=== PATIENT | female | born 1980 | race Caucasian/White ===

== ENCOUNTER → 2016-07-13 | Outpatient (CLI) | payer OTHER ==
[~2016-07-13] MED LIST: CEPH500C PO; FERR1TAB23; OMEG10007 PO; OXYC-57 PO; PRENTAB26 PO; VITA10004
[2016-07-13 18:04] LABS: HEMATOCRIT 35.4 % (37-47)
[2016-07-13 19:55] LABS: GTGD 50 Grams
== END | disposition home or self-care (01) ==
LOC: C.LAB1850 15:23
PROVIDERS: ATTEND Obstetrics & Gynecology
DX: O09.513 Supervision of elderly primigravida, third trimester (principal)

== ENCOUNTER → 2016-08-24 | Outpatient (CLI) | payer OTHER ==
[2016-08-24 19:10] LABS: URINE APPEARANCE CLEAR (CLEAR); URINE BILIRUBIN NEG (NEG); URINE COLOR YELLOW; URINE EPITHELIAL CELL AUTO >30 /lpf (0-5); URINE NITRITE NEG (NEG); URINE PH 7.5 (4.5-7.5); URINE SPECIFIC GRAVITY 1.008 (1.000-1.030); UROBILINOGEN NEG (NEG)
[2016-08-24 19:38] LABS: MANUAL MICROSCOPIC REQUIRED? NO; REVIEW REQ? NO
== END | disposition home or self-care (01) ==
LOC: C.LABSPEC 17:55
PROVIDERS: ATTEND Obstetrics & Gynecology
DX: O09.513 Supervision of elderly primigravida, third trimester (principal); Z3A.00 Weeks of gestation of pregnancy not specified

== ENCOUNTER → 2016-08-30 | Outpatient (CLI) | payer OTHER | END | disposition home or self-care (01) | LOC: C.LABSPEC 17:48 | PROVIDERS: ATTEND Obstetrics & Gynecology | DX: O09.513 Supervision of elderly primigravida, third trimester (principal); Z3A.00 Weeks of gestation of pregnancy not specified ==

== ENCOUNTER 2016-09-12 08:57 | Outpatient (CLI) | payer OTHER ==
[~2016-09-12] VITALS: Ht 160 cm; Wt 62.6 kg
[2016-09-12] MEDS ORDERED: FERR1TAB23 (10:19)
[2016-09-12] MEDS ORDERED: PRENTAB26 PO (10:19)
[2016-09-12 10:21] VITALS: Ht 160 cm; Wt 62.6 kg
== END 2016-09-12 10:29 | disposition home or self-care (01) ==
LOC: C.OPB 08:57 → C.LD 08:57 → C.OPB 10:29
PROVIDERS: ATTEND Obstetrics & Gynecology
DX: O32.1XX0 Maternal care for breech presentation, not applicable or unspecified (principal); O09.513 Supervision of elderly primigravida, third trimester; Z3A.37 37 weeks gestation of pregnancy

== ENCOUNTER 2016-09-25 08:46 | Inpatient (IN) | payer OTHER ==
--- NOTE | 2016-09-15 17:32 | HISTORY & PHYSICAL EXAMINATION ---
DATE OF ADMISSION: 09/25/2016 ADMITTING DIAGNOSES: 1. Term . 2. Breech presentation. 3. Advanced maternal age. 4. Failed external cephalic version. ADMISSION HISTORY: The patient is a 36-year-old 1, para 0 with an EDC of 27 September at 39+ weeks gestational age who is admitted for primary section for breech presentation. The patient's breech presentation was diagnosed at 36 weeks. She had an attempted external cephalic version on labor and delivery, which was unsuccessful. Treatment options were discussed and she is admitted for the above-listed procedures. The patient has had an unremarkable course. She had a panorama screening done for advanced maternal age, which was low risk. Her blood type is A positive, antibody negative, rubella immune, hepatitis B negative. She had a negative maternal serum AFP, negative 1 hour Glucola x2 and a negative third trimester beta strep culture. PAST MEDICAL HISTORY: OBSTETRICAL: As above. GYNECOLOGICAL: None. MEDICAL: Migraine headaches. SURGICAL: [place] teeth extraction, tonsillectomy, and myringotomy tubes. ALLERGIES: No known drug allergies. SOCIAL HISTORY: No smoking. FAMILY HISTORY: Noncontributory. REVIEW OF SYSTEMS: As per HPI. ADMISSION PHYSICAL EXAMINATION: GENERAL: Today shows a pleasant gravid female in no acute distress. VITAL SIGNS: Blood pressure 110/70, weight of 136 pounds. HEENT EXAMINATION: Unremarkable. NECK: Supple. LUNGS: Clear. HEART: With a regular rhythm and rate. ABDOMEN: Gravid, breech. Positive heart tones, estimated weight of 7-1/2 pounds. PELVIC: Shows the cervix to be long, thick and closed. EXTREMITIES: Shows no deep calf tenderness. NEUROLOGIC: Grossly intact. IMPRESSION: A 36-year-old 1, para 0, 39+ weeks gestational age, primary section for breech presentation. PLAN: Risks, benefits and alternatives to the surgery have been discussed. While the benefits will be delivery of the , the risks are bleeding, infection, inadvertent injury to bowel or bladder, readmission or reoperation. The patient understands this. Permit has been signed and she wishes to proceed.
[~2016-09-25] VITALS: Ht 160 cm; Wt 60.8 kg
[2016-09-25] VITALS (12 sets, daily range): BP systolic 127–134; BP diastolic 75–87; PULSE 66–86; TEMP 36.7–36.9; O2SAT 97–100; Ht 160 cm; Wt 60.8 kg
[~2016-09-25 08:46] MED LIST changes: +CEFAZOLIN IV 2,000 MG in DEXTROSE 5% 50ML IV SCH; -CEPH500C PO; +CITRIC ACID/SODIUM CITRATE 15 ML UDC PO SCH; +LACTATED RINGER'S 1000ML 1,000 ML IV SCH; -OMEG10007 PO; -OXYC-57 PO; -VITA10004
[2016-09-25 09:56] LABS: HEMATOCRIT 38.9 % (37-47); MEAN CELL VOLUME 89.6 fL (80-100); MEAN CORPUSCULAR HEMOGLOBIN 30.6 pg (25-34); MEAN CORPUSCULAR HGB CONC 34.2 g/dl (32-36); MEAN PLATELET VOLUME 11.4 fL (7.4-10.4); PLATELET COUNT 198 K/uL (130-400); RED BLOOD COUNT 4.34 M/uL (4.2-5.4)
[2016-09-25] MEDS ORDERED: LACTATED RINGER'S 1000ML 1,000 ML IV SCH (10:15)
[2016-09-25] MEDS ORDERED: OMEG10007 PO (10:37)
[2016-09-25] MEDS ORDERED: VITA10004 (10:37)
--- NOTE | 2016-09-25 10:38 | History & Physical Bridge Note ---
H&P Re-Evaluation Bridge Note: I have examined the patient, reviewed the History & Physical and in the interval since the performance of the History & Physical I have noted the following changes of clinical significance: No changes noted
[2016-09-25] MEDS ORDERED: MoRPHine SULFATE PF 1 MG/ML 10 ML AMP/VIAL ONE (11:24)
[2016-09-25] MEDS ORDERED: OXYTOCIN INJ 10 UNITS/ML VIAL ONE ×2 (11:43→12:03)
[2016-09-25] MEDS ORDERED: NALOXONE HCL INJ 0.08 MG in SYRINGE 1.8 ML IV PRN (12:06)
[2016-09-25] MEDS ORDERED: NALOXONE HCL INJ 1 MG in SODIUM CHLORIDE 0.9% 1000ML 1,000 ML IV PRN (12:06)
[2016-09-25] MEDS ORDERED: LACTATED RINGER'S 1000ML 500 ML IV PRN (12:06)
[2016-09-25] MEDS ORDERED: SODIUM CHLORIDE 0.9% 1000ML 1,000 ML IV PRN (12:06)
[2016-09-25] MEDS ORDERED: ATROPINE SULFATE 0.1 MG/ML 5ML SYR IV PRN (12:15)
[2016-09-25] MEDS ORDERED: MEPERIDINE HCL 25 MG/ML CARP IV PRN ×2 (12:15)
[2016-09-25] MEDS ORDERED: SUPERCREAM 0.870 % 15GM JAR EXT PRN (12:15)
[2016-09-25] MEDS ORDERED: NALBUPHINE HCL INJ 10 MG/ML AMP IV PRN (12:15)
[2016-09-25] MEDS ORDERED: DiphenhydrAMINE HCL 50 MG/ML VIAL IV PRN ×2 (12:15)
[2016-09-25] MEDS ORDERED: FENTANYL CITRATE INJ 50 MCG/1 ML 2 ML VIAL IV PRN (12:15)
[2016-09-25] MEDS ORDERED: NALOXONE HCL 0.4 MG/1 ML VIAL/CARP IV PRN (12:15)
[2016-09-25] MEDS ORDERED: ONDANSETRON INJ 2 MG/ML 2 ML VIAL IV PRN ×2 (12:15)
[2016-09-25] MEDS ORDERED: MoRPHine SULFATE PF 1 MG/ML 10 ML AMP/VIAL EPI PRN (12:15)
[2016-09-25] MEDS ORDERED: EpHEDrine SULFATE INJ 50 MG/ML AMP IV PRN ×2 (12:15)
[2016-09-25] MEDS ORDERED: BENZOCAINE 20% AER SPR 82.5 GM CAN EXT PRN (12:15)
[2016-09-25] MEDS ORDERED: NO NARCOTICS OR SEDATIVES SCH (12:15)
[2016-09-25] MEDS ORDERED: LABETALOL HCL IV 5 MG/ML 20ML IV PRN (12:15)
[2016-09-25] MEDS ORDERED: LANOLIN OINT EXT PRN ×2 (12:15)
[2016-09-25] MEDS ORDERED: MoRPHine SULFATE 2 MG/ML CARP IV PRN (12:15)
[2016-09-25] MEDS ORDERED: HYDROCORTISONE ACETATE 25 MG SUPP PR PRN (12:15)
[2016-09-25] MEDS ORDERED: HYDROmorphone INJ 1 MG/ML SYR IV PRN (12:15)
--- NOTE | 2016-09-25 12:21 | [facility] Post Operative Brief Note ---
Immediate Operative Summary Operative Date Sep 25, 2016. Pre-Operative Diagnosis 1) Term . 2) breech presentation. Post-Operative Diagnosis Same as above. Procedure(s) Performed Primary caesarean section for breech presentation. Delivery of live female child at [address]. Surgeon Dr[address] Bernard Account Services Associate Surgeon(s) Dr. Kelsey Estimated Blood Loss 800cc Findings viable female , Apgars 8/9; weight 5 lbs 14 ozs, gasses pending, nml appearing tubes/ovaries bilaterally Specimens A: Placenta hold B: Cord blood C: Cord gasses venous only, D: Cord blood donation kit Drains Cabrera to gravity Anesthesia Spinal Complication(s) None Disposition L&D
--- NOTE | 2016-09-25 12:30 | Medical Student: [facility] ---
Immediate Operative Summary Operative Date Sep 25, 2016. Pre-Operative Diagnosis Term for breech presentation Post-Operative Diagnosis See above Procedure(s) Performed Primary section for breech presentation. Delivery of a live female infant at 1153. Surgeon Danilo Bernard MD Machine Hamper Maker Surgeon(s) Ty Kelsey MD Estimated Blood Loss 800cc Findings Live female . Apgars 8/9. Weight 5 lbs 14 oz. Normal appearing Fallopian tubes and ovaries bilaterally. Fluids (cc crystalloids) 1200cc Specimens Placenta Cord gasses Drains Cabrera to gravity Anesthesia Spinal Complication(s) None Disposition L&D
[2016-09-25] MEDS: KETOROLAC TROMETHAMINE 30 MG/ML VIAL IV. PRN ×2 (12:47→18:18)
[2016-09-25] MEDS: OXYTOCIN INJ 20 UNITS in LACTATED RINGER'S 1000ML 1,000 ML IV SCH ×2 (12:51→21:03)
[2016-09-25] MEDS: SIMETHICONE 80 MG CHEW PO SCH ×3 (13:00→20:54)
--- NOTE | 2016-09-25 14:28 | OPERATIVE REPORT ---
DATE OF OPERATION: 09/25/2016 PREOPERATIVE DIAGNOSES: 1. Term . 2. Breech presentation. POSTOPERATIVE DIAGNOSES: Same. PROCEDURE PERFORMED: Primary low cervical transverse section. SURGEON: Dr. Bernard. DEPOSIT REFUND CLERK: Dr. Ty Kelsey. ANESTHESIA: Spinal. FINDINGS: A viable female with Apgars of 8 and 9, weight of 5 pounds 14 ounces. Arterial and venous cord gases are pending. Normal appearing tubes and ovaries bilaterally. PROCEDURE IN DETAIL: The patient was taken to the operating room and after spinal anesthesia was placed in supine position and draped and prepped in the usual fashion. Pfannenstiel type incision was made. Underlying subcutaneous tissue was dissected down to the ventral abdominal fascia, which was nicked and opened in a horizontal manner. Preperitoneal fascia was dissected away until the peritoneal cavity was entered and opened in a vertical manner. Bladder blade was placed. Peritoneum overlying the uterus was elevated, opened in a semi-lunar fashion, the inferior margin of which was taken down, creating the bladder flap. Uterus was entered sharply and extended in a semilunar fashion manually. Baby was delivered from an apparent complete breech presentation. Cord was clamped and cut and the baby was passed off to pediatrics who was in attendance for the delivery. Cord gases, cord blood samples obtained. Attempt at volunteer cord blood donation, but unsuccessful volume collected. Placenta was delivered spontaneously and the uterus was exteriorized. Uterine cavity was wiped clean of any residual blood tissue and/or clot. The uterine incision was then closed in 2 layers of 4-0 Vicryl, the first a running locking stitch, the second an imbricating stitch. Hemostasis was achieved and the uterus was returned to the pelvic cavity. The paracolic gutters were cleared bilaterally of any blood tissue and/or clot. The sponge and needle count was correct. The rectus muscle was then plicated in the midline with a running 2-0 Vicryl suture. The fascia was closed laterally with a running 0 Vicryl suture. Subcutaneous tissue was irrigated with warm saline and the skin incision was closed with a 4-0 Monocryl subcuticular stitch. Sterile dressing was applied. The patient was taken to the recovery room in satisfactory condition. I attest to the content of the Intraoperative Record and any orders documented therein. Any exception s are noted below.
--- NOTE | 2016-09-25 16:17 | Anesthesiology Progress Note ---
Anesthesia Post Op Note Date & Time Sep 25, 2016 at 16:17 Vital Signs Pain Intensity: 4.0 Vital Signs Past 12 Hours Date Time Temp Pulse Resp B/P (MAP) Pulse Ox O2 Delivery O2 Flow Rate FiO2 09/25/16 15:00 36.7 66 16 127/75 (92) 99 Room Air 09/25/16 15:00 36.7 66 16 127/75 (92) 99 Room Air 09/25/16 15:00 16 99 Notes Mental Status: alert / awake / arousable, participated in evaluation Pt Amnestic to Procedure: Yes Nausea / Vomiting: adequately controlled Pain: adequately controlled Airway Patency, RR, SpO2: stable & adequate BP & HR: stable & adequate Hydration State: stable & adequate Neuraxial Anesthesia: was administered, sensory block is resolving Anesthetic Complications: no major complications apparent
--- NOTE | 2016-09-25 16:17 | Anesthesiology Progress Note ---
Anesthesia Post Op Note Date & Time Sep 25, 2016 at 16:17 Vital Signs Pain Intensity: 4.0 Vital Signs Past 12 Hours Date Time Temp Pulse Resp B/P (MAP) Pulse Ox O2 Delivery O2 Flow Rate FiO2 09/25/16 15:00 36.7 66 16 127/75 (92) 99 Room Air 09/25/16 15:00 36.7 66 16 127/75 (92) 99 Room Air 09/25/16 15:00 16 99 Notes Mental Status: alert / awake / arousable, participated in evaluation Pt Amnestic to Procedure: Yes Nausea / Vomiting: adequately controlled Pain: adequately controlled Airway Patency, RR, SpO2: stable & adequate BP & HR: stable & adequate Hydration State: stable & adequate Neuraxial Anesthesia: was administered, sensory block resolved Anesthetic Complications: no major complications apparent
[2016-09-25] MEDS: MAGNESIUM HYDROXIDE SUSP 30 ML UDC PO SCH (22:30)
[2016-09-26] VITALS (10 sets, daily range): BP systolic 111–138; BP diastolic 68–81; PULSE 76–95; TEMP 36.7–37.2; O2SAT 95–100
[2016-09-26] MEDS ORDERED: DC INTRASPINAL MORPHINE SCH (05:30)
[2016-09-26] MEDS ORDERED: KETOROLAC TROMETHAMINE 30 MG/ML VIAL IV. PRN (05:30)
[2016-09-26] MEDS ORDERED: OXYCODONE/ACETAMINOPHEN 5-325 TAB PO PRN ×2 (05:30)
[2016-09-26] MEDS ORDERED: DiphenhydrAMINE HCL 50 MG/ML VIAL IV PRN (05:30)
[2016-09-26] MEDS ORDERED: ONDANSETRON INJ 2 MG/ML 2 ML VIAL IV PRN (05:30)
[2016-09-26] MEDS ORDERED: MEPERIDINE HCL 50 MG/ML CARP IV PRN ×2 (05:30)
[2016-09-26 06:26] LABS: BASO % 0.2 %; BASO ABS # 0.03 K/uL (0-0.2); COMPLETE YES; EOS % 0.8 %; HEMATOCRIT 30.1 % (37-47); IG% 0.4 %; LYMPH % 11.1 %; LYMPH ABS # 1.53 K/uL (1.2-3.4); MEAN CELL VOLUME 89.9 fL (80-100); MEAN CORPUSCULAR HEMOGLOBIN 30.7 pg (25-34); MEAN CORPUSCULAR HGB CONC 34.2 g/dl (32-36); MEAN PLATELET VOLUME 10.8 fL (7.4-10.4); MONO % 5.2 %; NEUT % 82.3 %; PLATELET COUNT 162 K/uL (130-400); RED BLOOD COUNT 3.35 M/uL (4.2-5.4); WHITE BLOOD COUNT 13.84 K/uL (4.8-10.8)
--- NOTE | 2016-09-26 06:58 | Medical Student: [facility] ---
Med Student DIRECTOR OF STRATEGIC ALLIANCES Progress Nt Date of Service Sep 26, 2016. Subjective conversation w/ patient Ambulation: limited ambulation (has sat up and dangled legs off of bed but not yet ambulated) Voiding: no voiding problems (montero removed this morning ) Passing Gas: Yes Diet Tolerance: Clear Liquids Feeding Type: Breast Feeding Pain: 3-4/10 without any pain meds. Notes: Patient is doing well. Reports some itching but otherwise has no acute complaints. SCDs are in place. Received no pain meds overnight. Reports headache but attributes it to lack of sleep. Concerned baby is not feeding enough and is willing to supplement with bottle feeding. Pt denies fevers, calf pain, chest pain, shortness of breath, and abdominal pain. Plan of care was described to the patient and all questions were answered. Review of Systems Constitutional: No fever, No chills, No sweats Respiratory: No shortness of breath Cardiac: No chest pain Abdomen: + pain (abdomen was slightly red, with some tenderness on palpation), No nausea, No vomiting Objective Vital Signs Date Time Temp Pulse Resp B/P (MAP) Pulse Ox O2 Delivery O2 Flow Rate FiO2 09/26/16 04:10 36.9 76 20 124/77 (93) 100 Room Air 09/26/16 04:00 20 100 09/26/16 03:00 20 97 09/26/16 02:00 18 100 09/26/16 01:00 20 97 09/26/16 00:00 20 97 09/25/16 23:30 97 Room Air 09/25/16 23:30 36.8 86 20 134/82 (99) Room Air 09/25/16 23:00 20 99 09/25/16 22:00 18 97 09/25/16 21:00 18 97 09/25/16 20:00 18 98 09/25/16 19:50 36.9 76 18 133/87 (102) Room Air 09/25/16 19:00 18 100 09/25/16 18:00 16 100 09/25/16 17:00 18 100 09/25/16 16:00 18 100 09/25/16 15:30 99 Room Air 09/25/16 15:00 36.7 66 16 127/75 (92) 99 Room Air 09/25/16 15:00 36.7 66 16 127/75 (92) 99 Room Air 09/25/16 15:00 16 99 Physical Exam General Appearance: WELL-APPEARING, WD/WN, NO APPARENT DISTRESS Fundus: Firm, Non-Tender, Relation to Umbilicus (1 cm below umbilicus) Incision Description: Clean, Dry & Intact Laboratory Results Last 24 Hours Test 09/25/16 09:29 09/26/16 06:11 White Blood Count 11.50 K/uL 13.84 K/uL Red Blood Count 4.34 M/uL 3.35 M/uL Hemoglobin 13.3 g/dL 10.3 g/dL Hematocrit 38.9 % 30.1 % Mean Corpuscular Volume 89.6 fL 89.9 fL Mean Corpuscular Hemoglobin 30.6 pg 30.7 pg Mean Corpuscular Hemoglobin Concent 34.2 g/dl 34.2 g/dl RDW Standard Deviation 42.8 fL 43.2 fL RDW Coefficient of Variation 13.0 % 13.2 % Platelet Count 198 K/uL 162 K/uL Mean Platelet Volume 11.4 fL 10.8 fL Neutrophils (%) (Auto) 82.3 % Lymphocytes (%) (Auto) 11.1 % Monocytes (%) (Auto) 5.2 % Eosinophils (%) (Auto) 0.8 % Basophils (%) (Auto) 0.2 % Neutrophils # (Auto) 11.39 K/uL Lymphocytes # (Auto) 1.53 K/uL Monocytes # (Auto) 0.72 K/uL Eosinophils # (Auto) 0.11 K/uL Basophils # (Auto) 0.03 K/uL Immature Granulocyte % (Auto) 0.4 % Immature Granulocyte # (Auto) 0.06 K/uL Assessment and Plan Post-Op Day Number: 1 Continue Routine Care: GBS negative, A+ blood type Continue routine care Encourage ambulation Continue SCD use Vital signs reviewed and stable; continue with regular vital sign checks Hb 13.3 --> 10.3 Monitor wound complained of leg itching - advised to let nurses know if she would like diphenhydramine Control pain with PO meds as needed
--- NOTE | 2016-09-26 07:01 | Progress Note ---
Subjective Sep 26, 2016. Subjective conversation w/ patient Ambulation: limited ambulation Voiding: no voiding problems (montero cathetor removed) Passing Gas: Yes Diet Tolerance: Clear Liquids Lochia: Moderate Feeding Type: Breast Feeding (pt is worried if baby is getting enough breastmild, assured pt that the pediatritians are monitoring weight, hydration status and will provide care for Danny (girl)) Comment: The patient was seen and examined at bedside. Pt is worried that her child is getting enough breast mild, met with analytical consultant Molly today and excited to speak with her today as well. Got 30mg of Toradol at 6pm yesterday. Pt reports mild headache, well controlled abdominal pain, she didn't get the best sleep she could. Pt reports anterior left ankle pain - non tender to palpation , FROM, benign on exam. Also has mild leg itching for which she hasn 't told the nurse about. Patient is resting comfortably in bed. Montero was recently removed. Plan of care was described to the patient and all questions were answered. Review of Systems Constitutional: No fever, No chills, No weakness Respiratory: No cough, No sputum, No wheezing, No shortness of breath, No dyspnea on exertion Cardiac: No chest pain, No edema, No palpitations Breast: No breast pain Abdomen: No pain, No nausea, No vomiting, No diarrhea, No constipation Female : + vaginal discharge, No dysuria Objective Vital Signs Date Time Temp Pulse Resp B/P (MAP) Pulse Ox O2 Delivery O2 Flow Rate FiO2 09/26/16 04:10 36.9 76 20 124/77 (93) 100 Room Air 09/26/16 04:00 20 100 09/26/16 03:00 20 97 09/26/16 02:00 18 100 09/26/16 01:00 20 97 09/26/16 00:00 20 97 09/25/16 23:30 97 Room Air 09/25/16 23:30 36.8 86 20 134/82 (99) Room Air 09/25/16 23:00 20 99 09/25/16 22:00 18 97 09/25/16 21:00 18 97 09/25/16 20:00 18 98 09/25/16 19:50 36.9 76 18 133/87 (102) Room Air 09/25/16 19:00 18 100 09/25/16 18:00 16 100 09/25/16 17:00 18 100 09/25/16 16:00 18 100 09/25/16 15:30 99 Room Air 09/25/16 15:00 36.7 66 16 127/75 (92) 99 Room Air 09/25/16 15:00 36.7 66 16 127/75 (92) 99 Room Air 09/25/16 15:00 16 99 Physical Exam General Appearance: WELL-APPEARING, WD/WN, NO APPARENT DISTRESS Respiratory/Chest: chest non-tender, lungs clear, normal breath sounds, no respiratory distress, no accessory muscle use Cardiovascular: regular rate, rhythm, no edema, no gallop, no JVD, no murmur Abdomen: normal bowel sounds, non tender, soft, no organomegaly, no pulsatile mass, + pertinent finding (skin over anterior abdomen is slightly erythematous around the area where the iodine was applied ) Fundus: Firm, Non-Tender, Relation to Umbilicus (1) Incision Description: Clean, Dry & Intact Extremities: normal range of motion, non-tender, normal inspection, no pedal edema, no calf tenderness Laboratory Results Last 24 Hours Test 09/25/16 09:29 09/26/16 06:11 White Blood Count 11.50 K/uL 13.84 K/uL Red Blood Count 4.34 M/uL 3.35 M/uL Hemoglobin 13.3 g/dL 10.3 g/dL Hematocrit 38.9 % 30.1 % Mean Corpuscular Volume 89.6 fL 89.9 fL Mean Corpuscular Hemoglobin 30.6 pg 30.7 pg Mean Corpuscular Hemoglobin Concent 34.2 g/dl 34.2 g/dl RDW Standard Deviation 42.8 fL 43.2 fL RDW Coefficient of Variation 13.0 % 13.2 % Platelet Count 198 K/uL 162 K/uL Mean Platelet Volume 11.4 fL 10.8 fL Neutrophils (%) (Auto) 82.3 % Lymphocytes (%) (Auto) 11.1 % Monocytes (%) (Auto) 5.2 % Eosinophils (%) (Auto) 0.8 % Basophils (%) (Auto) 0.2 % Neutrophils # (Auto) 11.39 K/uL Lymphocytes # (Auto) 1.53 K/uL Monocytes # (Auto) 0.72 K/uL Eosinophils # (Auto) 0.11 K/uL Basophils # (Auto) 0.03 K/uL Immature Granulocyte % (Auto) 0.4 % Immature Granulocyte # (Auto) 0.06 K/uL Assessment and Plan Post-Op (1) Day#: 1 Continue Routine Care: 36F s/p Low Transverse at 39W+5D for breech presentation. Doing well. GBS negative, A+ blood type vital signs reviewed and stable will continue regular vital sign checks leg itching - advised to tell the nurse about itching if she wants medication about it left ankle pain - benign exam (non tender, FROM, distal anterior ankle), very low probability of DVT hemoglobin 13.3-->10.3, will repeat H&H tomorrow AM progress diet from clear liquids monitor wound and lochia ambulate and SCDs for DVT prophylaxis control pain w PO medication continue routine post op care Resident Physician Supervision Note: I interviewed and examined the patient. Discussed with Dr. Kelsey and agree with findings and plan as documented in the note. Any exceptions or clarifications are listed here: [None] Documented By: Cielo Armenta Resident Involvement: Resident Care Provided Care Provided: OB Delivery
[2016-09-26] MEDS: PRENATAL VITAMIN TAB PO SCH (08:29)
[2016-09-26] MEDS: SIMETHICONE 80 MG CHEW PO SCH ×4 (08:29→19:48)
[2016-09-26] MEDS: IBUPROFEN 600 MG TAB PO PRN (19:48)
[2016-09-26] MEDS: SENNA 8.6 MG TAB PO SCH (21:10)
[2016-09-26] MEDS: MAGNESIUM HYDROXIDE SUSP 30 ML UDC PO SCH (21:10)
[2016-09-27 07:41] LABS: HEMATOCRIT 30.2 % (37-47)
--- NOTE | 2016-09-27 07:57 | Progress Note ---
Subjective Sep 27, 2016. Subjective conversation w/ patient, physical exam, lab review Ambulation: ambulating normally Voiding: no voiding problems Passing Gas: Yes (HAD BM) Diet Tolerance: Regular Diet Lochia: Small Feeding Type: Breast Feeding Pain: CONTROLLED WITH ORAL PAIN MEDS Comment: PATIENT WAS UNABLE TO VOID YESTERDAY AND HAD JONES REPLACED. Objective Vital Signs Date Time Temp Pulse Resp B/P (MAP) Pulse Ox O2 Delivery O2 Flow Rate FiO2 09/26/16 23:25 Room Air 09/26/16 23:25 36.7 78 18 121/77 (92) Room Air 09/26/16 15:10 37.2 95 20 138/68 (91) 99 Room Air 09/26/16 15:10 Room Air 09/26/16 12:00 36.8 84 18 111/68 (82) 98 Room Air 09/26/16 08:40 Room Air 09/26/16 08:15 37.0 88 20 129/81 (97) 95 Room Air Physical Exam General Appearance: WELL-APPEARING, WD/WN, NO APPARENT DISTRESS Respiratory/Chest: lungs clear, normal breath sounds Cardiovascular: regular rate, rhythm Abdomen: normal bowel sounds, non tender, soft Fundus: Firm, Non-Tender, Relation to Umbilicus (ATU) Incision Description: Clean, Dry & Intact (SIGNIFICANT BRUISING OF THE INCISION BOTH ABOVE AND BELOW. ALSO BRUISING NOTED ONTO THE LABIA MAJORA. FIRM BUT NOT HOT.) Extremities: non-tender, normal inspection, no pedal edema Laboratory Results Last 24 Hours Test 09/27/16 07:03 Hemoglobin 9.9 g/dL Hematocrit 30.2 % Assessment and Plan Post-Op (1) Day#: 2 Continue Routine Care: ROUTINE CARE. WILL REMOVE JONES AND ATTEMPT TO VOID AGAIN. IF STILL UNSUCCESSFUL, WILL D/C HOME WITH CATH. HER INCISION DOES NOT LOOK SIGNIFICANTLY WORSE THAN YESTERDAY ALTHOUGH THE BRUISING ON THE LABIA IS NEW. WILL CONTINUE TO MONITOR.
[2016-09-27 08:00] VITALS: BP 119/70; PULSE 71; TEMP 36.9
[2016-09-27] MEDS: PRENATAL VITAMIN TAB PO SCH (09:06)
[2016-09-27] MEDS: SIMETHICONE 80 MG CHEW PO SCH ×4 (09:06→19:54)
[2016-09-27] MEDS: IBUPROFEN 600 MG TAB PO PRN ×2 (09:54→17:21)
--- NOTE | 2016-09-27 11:19 | Discharge Instructions ---
Discharge Instructions Date of Service Sep 27, 2016. Admission Reason for Admission: Breech Discharge Discharge Diagnosis / Problem: Discharge Goals Goal(s): Routine recovery after Medications Continue Dispensed Medications: supercream, dermaplast, tucks, lansinoh Activity Recommendations Activity Limitations: as noted below . Instructions / Follow-Up Instructions / Follow-Up ACTIVITY RECOMMENDATIONS: * Gradual return to full activity over the next 2-3 weeks. * No lifting - nothing heavier than baby over the next 2-3 weeks. * Do not engage in vigorous exercise, sexual activity or sports until cleared by your physician. * Do not drive or operate any motorized equipment until cleared by your physician. * You may shower/bathe daily. MEDICATIONS: For discomfort or pain, you may use Acetaminophen (Tylenol), Ibuprofen (Advil), or Naproxen (Aleve) following the package directions. For constipation you may use Colace following the package directions. BREAST CARE: If you are not breast feeding: * Wear a supportive bra 24 hours a day for one to two weeks. * Avoid stimulating your breasts and nipples as much as possible during the first few weeks after delivery. * When taking a shower, have the warm water hit your back, not breasts. * When your breasts feel full, apply ice packs. Usually three to four times a day helps ease the discomfort. * Take a mild pain medication (Tylenol / Motrin) when you are uncomfortable. If breast feeding: * Use breast milk to lubricate nipples. Lansinoh cream may be used for sore nipples. You do not need to remove cream prior to breast feeding. If using a different brand of cream, check the label for directions regarding removal of cream prior to nursing. * Wear a supportive bra. * If having problems with breasts or breast feeding, call a database reporting consultant or your health care provider. SPECIAL CARE INSTRUCTIONS: When you are discharged from the hospital, it is important for you to follow the instructions listed below: * During the first week at home, you should be able to care for yourself and your baby. In addition, the usual light household activities are encouraged. * Limit your activities to the way you feel. Do not try to clean the house or move furniture. Be sensible. * If you actively engage in sports and have done so up until the time of your delivery, you may resume these activities as soon as you feel able. This may take up to one month or even longer. Use good judgment. * Continue to take your vitamins for at least six weeks after the of your baby. * Your diet need not be limited unless you were on a special diet before your delivery. Breast-feeding mothers need around 2500 calories per day and at least 64-80 ounces of fluid per day (8 to 10 glasses). * You should eat foods from the four major food groups. Crash diets or fad diets are to be avoided. Eating lean meats, fresh fruits and vegetables, low-fat dairy products, high fiber foods and a regular exercise program, will help you get back to your pre- weight without putting your health at risk. * Constipation is sometimes a problem after delivery. Take a mild laxative as needed. If breast feeding, Milk of Magnesia is acceptable to use. You may use a suppository or Fleets enema. * A daily shower or tub bath is suggested. Wash incision daily with warm soapy water and pat dry. It doesn't need to be covered unless drainage is present. * A bloody vaginal discharge will usually continue until around four weeks . A small amount of bleeding may continue for as long as six weeks. Vaginal discharge changes from the bright red bleeding after delivery to pink then brownish and finally yellowish-pink before becoming white and disappearing. * Bleeding may increase with activity. Your first period may come in 4-8 weeks. If you are breast feeding, your period may be delayed even longer. * Rippey (sex) can begin whenever both you and your partner feel comfortable and do not have any form of genital infection. It is recommended that you wait at least six weeks for internal and external healing to occur. If you have questions, please talk to your health care practitioner. A condom should be used to prevent infection and . * Foreplay, gentle intercourse and lubrication is very important the first several times to prevent pain. A water-based lubricant such as K-Y jelly or Astroglide may be used. * If you have RH negative blood and your baby is RH positive, you will receive RHOGAM by injection prior to discharge. The nurse will give you a card to keep with you that has the date and place that you received RHOGAM after delivery. * During your care, you had a Rubella screen done to check for the presence of rubella antibodies in your blood. If your test was negative, you will receive a Rubella vaccine prior to discharge. This vaccine may cause a fever, soreness at the injection site and flu-like symptoms. If these symptoms persist, notify your health care practitioner. is not advised for one month after a Rubella vaccine. * Verbalizes understanding of car seat law as reviewed with patient nursing. * Car Seat hand-out given and reviewed with patient by nursing. * Shaken baby information reviewed with patient by nursing. Call you doctor if: * Heavy bleeding (saturating several pads an hour) or passing clots the size of your fist. * A fever >101 degrees F (38.3 degrees C) on two occasions four hours apart and /or chills. * Unusual pain in the pelvic or vaginal areas. * Call the doctor for any increased redness, drainage or swelling around the incision and any pain unrelieved by prescribed pain medication. * "Baby Blues" lasting longer than two weeks. If you have any questions or concerns, call your health care practitioner at . FOLLOW UP VISIT: * Please call the office at to schedule a 6 week examination. It is important you keep this appointment. It is important for you to make arrangements for either yearly or twice yearly check-ups thereafter. Current Hospital Diet Patient's current hospital diet: Regular OB Diet Discharge Diet Recommended Diet: Regular Diet Procedures Procedures Performed: Primary caesarean section for breech presentation. Delivery of live female child at 1153. Pending Studies Studies pending at discharge: no Medical Emergencies . Who to Call and When: Medical Emergencies: If at any time you feel your situation is an emergency, please call [phone] immediately. . Non-Emergent Contact Non-Emergency issues call your: Primary Care Provider . . "Provider Documentation" section prepared by Ty Kelsey. . VTE Core Measure Inpt VTE Proph given/why not?: SCD's
[2016-09-27 15:50] VITALS: BP 109/73; PULSE 76; TEMP 36.8
[2016-09-27] MEDS: MAGNESIUM HYDROXIDE SUSP 30 ML UDC PO SCH (19:55)
[2016-09-27] MEDS: SENNA 8.6 MG TAB PO SCH (19:55)
[2016-09-28 00:30] VITALS: BP_SYST 128; BP_SYST 93; BP_DIAS 44; BP_DIAS 80; PULSE 52; PULSE 76; TEMP 36.6; TEMP 36.7
[2016-09-28] MEDS: IBUPROFEN 600 MG TAB PO PRN ×2 (05:41→14:01)
[2016-09-28 07:25] VITALS: BP 122/79; PULSE 76; TEMP 36.6; O2SAT 98
[2016-09-28] MEDS: PRENATAL VITAMIN TAB PO SCH (08:15)
[2016-09-28] MEDS: SIMETHICONE 80 MG CHEW PO SCH ×2 (08:16→14:02)
[2016-09-28 08:20] VITALS: O2SAT 98
[2016-09-28] MEDS ORDERED: OXYC-57 PO (08:34)
--- NOTE | 2016-09-28 08:35 | Progress Note ---
Progress Note Date of Service Sep 28, 2016. Progress Note [place] checked.
--- NOTE | 2016-09-28 08:50 | Progress Note ---
Subjective Sep 28, 2016. Subjective conversation w/ patient, physical exam Ambulation: ambulating normally Voiding: no voiding problems Passing Gas: Yes Diet Tolerance: Regular Diet Lochia: Moderate Feeding Type: Breast Feeding Pain: controlled Review of Systems Constitutional: No problem reported Respiratory: No problem reported Cardiac: No problem reported Breast: No problem reported Abdomen: No problem reported Female : No problem reported Objective Vital Signs Date Time Temp Pulse Resp B/P (MAP) Pulse Ox O2 Delivery O2 Flow Rate FiO2 09/28/16 07:25 36.6 76 16 122/79 (93) 98 Room Air 09/28/16 00:30 36.6 76 18 128/80 (96) Room Air 09/28/16 00:30 Room Air 09/27/16 16:10 Room Air 09/27/16 15:50 36.8 76 18 109/73 (85) Room Air 09/27/16 09:25 Room Air Physical Exam General Appearance: WELL-APPEARING, NO APPARENT DISTRESS Respiratory/Chest: no respiratory distress Cardiovascular: regular rate, rhythm Abdomen: non tender, soft Fundus: Firm Incision Description: Clean, Dry & Intact, Ecchymosis (again, there is significant eccymosis surrounding incision and extending to vulva. Compared to my eval last night, this is similar. ) Extremities: normal inspection Assessment and Plan Post-Op (1) Day#: 3 Continue Routine Care: POD#3 s/p will discharge to home today. teaching done. patient to followup in office in one week for incision/bruising check. on today 's exam, the bruising does not look like it is worse than last evening. h/h stable.
[2016-09-28 14:30] VITALS: BP_DIAS 79; PULSE 76; TEMP 36.6
--- NOTE | 2016-09-29 18:00 | Discharge Summary ---
Discharge Summary Date of Service Sep 29, 2016. Discharge Summary Admission Date: Sep 25, 2016 at 08:46 Discharge Date: Sep 28, 2016 Discharge Disposition: Home Principal Diagnosis: 1) Term 2) Breech presentation Procedures: Primary low cervical transverse section Medication Reconciliation New Medications: Oxycodone/Acetaminophen 5MG/325MG (Percocet 5MG/325MG) Tab 1 TAB PO Q4H PRN for Pain - Pain Scale 1-5 for 7 Days, #30 TAB PAIN Continued Medications: Ferrous Sulfate (Iron) 325 Mg Tab Fish Oil ([place]-3) 1 Ea Cap 1 CAP PO, CAP Multivit/Min/Iron/Fol Ac/Pren ( Vitamin) Tab 1 TAB PO DAILY, TAB Vitamin E (Vitamin E) 1,000 Unit Cap Hospital Course On the day of admission the patient was taken to the operating room where she underwent a primary low cervical transverse section. Operative shot finding showed a viable female with Apgars of 8 and 9 and weight of 5 lbs. 14 oz. normal-appearing tubes and ovaries bilaterally. Postoperatively the patient did well fully catheter was removed on the first postoperative day. By the third postoperative day the patient was ambulating without difficulty and tolerating a regular diet. The patient was discharged home with routine discharge instructions and prescriptions for the medications as listed as above. She will follow-up in the office in 2 weeks' time for a postoperative check, but is always she's been instructed to call with any questions prior to her difficulties. Total Time Spent: Less than 30 minutes This includes examination of the patient, discharge planning, medication reconciliation, and communication with other providers. Discharge Instructions Please refer to the electronic Patient Visit Report (Discharge Instructions) for additional information.
== END 2016-09-28 15:33 | disposition home or self-care (01) | DRG 766 ==
LOC: C.LD 08:46 → EDSTATUS 10:30 → C.OBG 15:23
PROVIDERS: ADMIT Obstetrics & Gynecology; ATTEND Obstetrics & Gynecology
PROC: 10D00Z1 Extraction of Products of Conception, Low, Open Approach (ICD-10-PCS; principal; 2016-09-25 10:30)
DX: O32.1XX0 Maternal care for breech presentation, not applicable or unspecified (principal); O99.73 Diseases of the skin and subcutaneous tissue complicating the puerperium; L29.9 Pruritus, unspecified; O90.89 Other complications of the puerperium, not elsewhere classified; M25.572 Pain in left ankle and joints of left foot; O90.2 Hematoma of obstetric wound; O71.82 Other specified trauma to perineum and vulva; Z37.0 Single live birth; Z3A.39 39 weeks gestation of pregnancy

== ENCOUNTER 2016-10-06 11:54 | Emergency (ER) | payer OTHER ==
[~2016-10-06] VITALS: Ht 157.5 cm; Wt 54.7 kg
[~2016-10-06 11:54] MED LIST changes: -CEFAZOLIN IV 2,000 MG in DEXTROSE 5% 50ML IV SCH; -CITRIC ACID/SODIUM CITRATE 15 ML UDC PO SCH; -LACTATED RINGER'S 1000ML 1,000 ML IV SCH; +OMEG10007 PO; +OXYC-57 PO; +VITA10004
[2016-10-06 12:03] VITALS: TEMP 36.8; Ht 157.5 cm; Wt 54.7 kg
[2016-10-06] MEDS ORDERED: CEPH500C PO (12:13)
--- NOTE | 2016-10-06 12:35 | EMERGENCY ROOM VISIT NOTE ---
History Report prepared by Eugene: Judith Simon Under the Supervision of: Dr. Garrett Clark M.D. First contact with patient: 12:29 Chief Complaint: WOUND RECHECK Stated Complaint: BLEEDING FROM Nursing Triage Summary: Patient sent by Dr Malone for evaluation of hematoma under c section site. Patient to see Dr Perez History of Present Illness The patient is a 36 year old female who presents to the Emergency Room with complaints of a worsening hematoma to c section incision site that occurred a few days prior to arrival. The patient delivered via c section on September 25 due to her child being breached. She notes no complications with the delivery and was discharged home within a few days. The patient saw Dr. Kira KRAMER today and was referred to the ED for the incision to be evaluated by Dr. Ana KRAMER. Dr. Malone said that the patient's incision is clotted. The patient notes mild vaginal bleeding after the c section but that it has since resolved. The patient denies blood thinner use, fevers, pain or swelling of the lower extremities. 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 Review of Systems See HPI for pertinent positives & negatives. A total of 10 systems reviewed and were otherwise negative. Past Medical & Surgical Medical Problems: (1) Breech presentation (2) Supervision of elderly primigravida, third trimester Old medical records were reviewed. Nurse's notes were reviewed and I agree with. Family History Patient reports no known family medical history. Social History Smoking Status: Former Smoker Smokeless Tobacco Use: No Alcohol Use: none Occupation Status: employed Current/Historical Medications Scheduled Cephalexin Monohydrate (Keflex), 500 MG PO Q12 Multivit/Min/Iron/Fol Ac/Pren ( Vitamin), 1 TAB PO DAILY Scheduled PRN Oxycodone/Acetaminophen 5MG/325MG (Percocet 5MG/325MG), 1 TAB PO Q4H PRN for Pain - Pain Scale 1-5 Miscellaneous Medications Ferrous Sulfate (Iron) Fish Oil ([place]-3), 1 CAP PO Vitamin E (Vitamin E) Allergies Coded Allergies: No Known Allergies (Unverified , 10/06/16) Physical Exam Vital Signs Date Time Temp Pulse Resp B/P (MAP) Pulse Ox O2 Delivery O2 Flow Rate FiO2 10/06/16 13:31 66 17 118/79 98 Room Air 10/06/16 12:03 36.8 79 20 140/87 98 Room Air Physical Exam General: Well developed well nourished in no acute distress non ill appearing young female, breathing comfortably on room air. Normal speech. She is breast feeding her child. HEENT: Normal cephalic atraumatic. Pupils are equal round and reactive to light. Extraocular movements are intact. Oropharynx is pink with moist mucous membranes. No swelling of the mouth lips or tongue. Neck: Supple with a midline trachea. No meningeal signs or stiffness, no JVD or bruits. No Stridor. Chest: Clear to auscultation bilaterally. No wheezes or rhonchi. No increased work of breathing. Heart: regular rate and rhythm. Abdomen: Healing incision that has induration around and bruising. Small central area open with hematoma. Extremities: No cyanosis clubbing or edema. No calf tenderness or assymetry Spine/Back. Non tender to palpation. No CVA tenderness Skin: Good turgor without rashes. Neurologic exam: Cranial nerves two through 12 are intact. Motor and sensation are intact and symmetrical throughout. Medical Decision & Procedures Laboratory Results Laboratory studies as stated above per my review. ED Course 1229: Past medical records reviewed. The patient was evaluated in room B11, and a complete history and physical examination were performed. 1240: Dr. Ana KRAMER is in the room evaluating the patient. 1300: Dr. Ana KRAMER saw the patient and would like the patient to follow up with the wound center. 1325: I spoke with the patient and told her the plan. She will go directly to the wound center after discharge. 1328: I spoke with Dr. Mabry - W[facility] and he will expect the patient at the wound center today. 1330: Upon reevaluation, the patient is hemodynamically stable. I discussed the results and treatment plan with the patient. She verbalized agreement of the treatment plan. The patient was discharged home. Medical Decision Differentials include, but are not limited to; post operative hematoma, infection. Medication Reconciliation: I attest that I have personally reviewed the patient' s current medication list. Blood Pressure Screening: Patient was found to have a slightly elevated blood pressure due to circumstances. I do not believe that the patient requires hypertension monitoring. This patient comes in as described above. She was placed in room B 11. She is here for treatment and evaluation of wound hematoma about 1 week after C- section. She's been hemodynamically stable. She was seen by Dr. Malone and sent over. Dr. Porter did arrive shortly afterward the patient was seen by myself. There is no evidence of infection. Dr. Porter has irrigated some the hematoma and asked that we get her set up with the wound clinic. I did talk to Dr. Mabry from wound clinic on the phone and explained this situation and the patient is to be sent from the ER to the wound clinic for further treatment and evaluation. The patient and her mother were happy with plan and she was discharged with plans to go to the wound clinic Consults Time Called: 1239 Consulting Physician: Dr. Perez Returned Call: 1240 Dr. Perez is in the room evaluating the patient. Additional Consults: Time Called: 1327 Consulted Physician: Dr. Mabry - [facility] Returned Call: 1328 Additional Comments: I spoke with Dr. Mabry - [facility] and he will expect the patient at the wound center today. Impression Primary Impression: Postoperative hematoma Scribe Attestation The scribe's documentation has been prepared under my direction and personally reviewed by me in its entirety. I confirm that the note above accurately reflects all work, treatment, procedures, and medical decision making performed by me. Departure Information Dispostion Home / Self-Care Referrals Wendy Marley D.O. (PCP) Forms HOME CARE DOCUMENTATION FORM, IMPORTANT VISIT INFORMATION, WORK / SCHOOL INSTRUCTIONS Patient Instructions My [facility] Additional Instructions Continue dressing changes as outlined by Dr. Porter Follow-up with the wound care clinic as arranged by our case management team Continue your antibiotics Return if: Worsening of symptoms, increasing bleeding,, redness or warmth, lightheadedness or dizziness, fever or chills, any new problems or concerns
--- NOTE | 2016-10-06 13:09 | Medical Consult ---
Consultation Date of Consultation: Oct 06, 2016. Attending Physician: Dr Clark Reason for Consultation: Bleeding wound History of Present Illness Patient delivered by for breech presentation on 09/25/16. After delivery, she had extensive bruising at the incision site, extending into labia majora. She was evaluated in the office yesterday, and incision was intact and healing appropriately. After she left the office, she leaned over the crib at home and started leaking bloody fluid from the incision site. She went to [facility], where she was prescribed antibiotics (Keflex 1000mg BID) and discharged to home. She followed up in the office today, saw Dr Malone, who extended the incision opening in the office and attempted to evacuate blood/ contents. Since the blood was clotted and needed irrigation and evacuation, she referred patient to emergency department. Patient denies fever/chills, denies nausea/vomiting. Not experiencing much pain at incision site. Social History Smoking Status: Former Smoker Allergies Coded Allergies: No Known Allergies (Unverified , 10/06/16) Review of Systems Constitutional: No problem reported Eyes: No problem reported ENT: No problem reported Respiratory: No problem reported Cardiovascular: No problem reported Abdomen: No problem reported Musculoskeletal: No problem reported Genitourinary - Female: No problem reported Neurologic: No problem reported Psychiatric: No problem reported Endocrine: No problem reported Hematologic / Lymphatic: No problem reported Integumentary: No problem reported Allergic / Immunologic: No problem reported Physical Exam Date Time Temp Pulse Resp B/P (MAP) Pulse Ox O2 Delivery O2 Flow Rate FiO2 10/06/16 12:03 36.8 79 20 140/87 98 Room Air General Appearance: WD/WN, no apparent distress Head: normocephalic ENT: hearing grossly normal Respiratory/Chest: no respiratory distress Cardiovascular: regular rate, rhythm Abdomen/GI: non tender, soft, + pertinent finding (incision mostly intact, with 1.5cm opening at midline, bruising around incision area, no erythema/ induration or pus at incision site) Extremities/Musculoskelatal: normal inspection Neurologic/Psych: alert, normal mood/affect, oriented x 3 Skin: normal color Lymphatic: no adenopathy Laboratory Results Last 24 Hours Test 10/06/16 12:33 Assessment & Plan H/o 09/25 with clotted hematoma in subcutaneous space. Area was evacuated of clots and irrigated with a small amount of normal saline. Hematoma appears superficial; fascia is intact. No signs of infection. Patient instructed to continue antibiotics as prescribed by [facility], and will followup within 1-2 days with [facility]. We discussed s/s infection, and she is to return to the ER if she develops these. She is agreeable.
[2016-10-06 13:31] VITALS: BP 118/79; PULSE 66; O2SAT 98
== END 2016-10-06 13:34 | disposition home or self-care (01) ==
LOC: C.EDB 11:55
DX: O90.2 Hematoma of obstetric wound (principal); Z87.891 Personal history of nicotine dependence

== ENCOUNTER 2019-10-13 07:30 | Inpatient (IN) ==
[~2019-10-13 07:30] MED LIST changes: +CEFAZOLIN 2000MG 2,000 MG/15 ML SYR IV SCH; +CITRIC ACID/SODIUM CITRATE 15 ML UDC PO SCH; -FERR1TAB23; +LR 15ML/HR IV SCH; -OMEG10007 PO; -OXYC-57 PO; -PRENTAB26 PO; -VITA10004
[2019-10-13] MEDS ORDERED: LACTATED RINGER'S 1,000 ML IV SCH ×2 (09:00→14:10)
[2019-10-13 09:22] LABS: Basophils # (auto) 0.04 K/uL (0-0.2); Basophils % (auto) 0.4 %; Eosinophils # (auto) 0.12 K/uL (0-0.5); Eosinophils % (auto) 1.1 %; Hematocrit (blood only) 35.6 % (37-47); Immature Granulocytes # (auto) 0.06 K/uL (0.00-0.02); Immature Granulocytes % (auto) 0.5 %; Lymphocytes # (auto) 1.28 K/uL (1.2-3.4); Lymphocytes % (auto) 11.3 %; Mean Corpuscular Hemoglobin 30.8 pg (25-34); Mean Corpuscular Volume 91.5 fL (80-100); Monocytes # (auto) 0.77 K/uL (0.11-0.59); Monocytes % (auto) 6.8 %; Neutrophils # (auto) 9.05 K/uL (1.4-6.5); Neutrophils % (auto) 79.9 %; Platelet Count 190 K/uL (130-400); RDW Coefficient of Variation 13.6 % (11.5-14.5); RDW Standard Deviation 44.7 fL (36.4-46.3); Red Blood Count 3.89 M/uL (4.2-5.4); White Blood Count 11.32 K/uL (4.8-10.8)
[2019-10-13 09:30] LABS: Mean Corpuscular Hgb Conc 33.7 g/dL (32-36)
--- NOTE | 2019-10-13 10:01 | History & Physical Report ---
Date of Service October 13, 2019 Assessment & Plan (1) Previous delivery affecting , antepartum: Repeat section. The patient was counseled to the nature of the procedure including alternatives such as labor. Risks were discussed including bleeding infection injury to bowel bladder ureter vessels and even baby. The risks of internal organ injury were discussed as being higher with prior sections. Deep Vein Thrombosis, pulmonary embolus and breakdown of the incision discussed. Deep vein thrombosis pulmonary embolus hernia and failure of the incision to heal were discussed Patient verbalized understanding of this and was given ample time to ask questi ons Admission and Anticipated Discharge Date Admission Date: October 13, 2019 History of Present Illness Primary Care Provider: Wendy Marley DO Repeat 's section this is her second section patient is completed at least 39 weeks gestation Allergies Allergy/AdvReac Type Severity Reaction Status Date / Time No Known Allergies Allergy Verified 10/09/19 10:14 Home Medications Home Medications Medication Instructions Recorded Confirmed Type omega-3 fatty acids 1,000 mg 1,000 mg PO DAILY 11/12/18 10/09/19 History capsule cholecalciferol (vitamin D3) 100 4,000 units PO DAILY 03/24/19 10/09/19 History mcg (4,000 unit) capsule prenat.vits,giuliano,fso-ofso-gskzd 1 tab PO DAILY 03/24/19 10/09/19 History Probiotic 1 cap PO DAILY 09/22/19 10/09/19 History ferrous sulfate [iron] 325 mg PO DAILY 09/22/19 10/09/19 History Patient History Medical History GERD (gastroesophageal reflux disease) Hx of abnormal cervical Pap smear 2000, laser of cx Irregular heart beat FOLLOWS CARDIOLOGY ([facility]) Jaw clicking Surgical History H/O section X 1 H/O myringotomy History of anesthesia reaction NUMBNESS IN ARM WITH LAST (RT SHOULDER TO ELBOW) TINGLING SENSATION IN LEGS BILAT. 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[employer] Other Information That Helps Us Care for You: No Feels Safe at Home: Yes Safety Concerns: Feels Safe At This Time Smoking Status: Former smoker Tobacco Type: cigarettes ; Do You Dip or Chew Tobacco: No ; Smoking End Date: 2005 ; Second Hand Exposure: Yes ( A CHILD) ; Tobacco Cessation Education Requested by Patient: No Hx Alcohol Use: No Hx Substance Use: No Physical Exam Constitutional: WD/WN, vitals as above Respiratory: normal respiratory effort, lungs clear to auscultation Cardiovascular: RRR, no murmur, no edema Gastrointestinal (Abdomen): normal bowel sounds, soft, nontender, no hepatosplenomegaly Genitourinary: OB Exam Abdomen: + vertex OB Exam Monitor Tracing: + external FHT monitor used Results & Data ([facility]) Vital Signs (Past 12 Hours) Vital Signs Temp Pulse Resp BP 10/13/19 09:23 98.4 F 20 10/13/19 08:57 71 133/74 Code Status & VTE Plan VTE Prophylaxis Plan VTE Prophylaxis will be ordered: Yes Coding Level of Care Code None Diagnoses Previous delivery affecting , antepartum O34.219
--- NOTE | 2019-10-13 10:02 | History & Physical Bridge Note ---
Date of Service October 13, 2019 History & Physical Bridge Note I have examined the patient, reviewed the History & Physical and in the interval since the performance of the History & Physical I have noted the following changes of clinical significance: no changes noted
[2019-10-13] MEDS ORDERED: NALOXONE HCL 1 MG in SODIUM CHLORIDE 0.9% 1000ML 1,000 ML IV PRN (10:09)
[2019-10-13] MEDS ORDERED: DiphenhydrAMINE HCL 50 MG/ML VIAL IV PRN (10:09)
[2019-10-13] MEDS ORDERED: ONDANSETRON INJ 2 MG/ML 2 ML VIAL IV PRN (10:09)
[2019-10-13] MEDS ORDERED: MoRPHine SULFATE PF 1 MG/ML 10 ML AMP/VIAL INT SPINAL ONE (10:09)
[2019-10-13] MEDS ORDERED: NALOXONE HCL 0.08 MG in SYRINGE 1.8 ML IV PRN (10:09)
[2019-10-13] MEDS ORDERED: ePHEDrine sulfate 50 MG/ML AMP IV PRN (10:09)
[2019-10-13] MEDS ORDERED: NALOXONE HCL 0.4 MG/1 ML VIAL/CARP IV PRN (10:09)
[2019-10-13] MEDS ORDERED: LACTATED RINGER'S 500 ML IV PRN (10:09)
[2019-10-13] MEDS ORDERED: HYDROmorphone INJ 0.5 MG/0.5 ML SYR IV PRN (10:09)
[2019-10-13] MEDS ORDERED: KETOROLAC 30 MG/ML VIAL IV PRN (10:09)
[2019-10-13] MEDS ORDERED: SODIUM CHLORIDE 0.9% 1000ML 1,000 ML IV SCH (10:15)
[2019-10-13] MEDS ORDERED: NO NARCOTICS OR SEDATIVES SCH (10:15)
[2019-10-13] MEDS ORDERED: DC INTRASPINAL MORPHINE SCH (10:15)
--- NOTE | 2019-10-13 10:20 | Anesthesiology Consultation ---
Date of Service October 13, 2019 Patient had negative Covid 19 test. No known Covid 19 exposure. Assessment & Plan (1) Encounter for pre-operative examination: Chart Review Chart Review: Acceptable Risk for Surgery and Patient NOT seen in Pre Admission Testing Consults Requested none ASA ASA2 Proposed Anesthesia Anesthesia Type: MAC Spinal Risk / Benefits Reviewed With: PT / POA / Parent / Guardian, Accepts Plan and Informed Consent Obtained History Surgery Operation Date: 10/13/19 10:40 Proposed Procedures p Section in LD - J. Ba Cho MD, FACOG Height/Weight Height: 5 ft 2 in Weight: 69.4 kg Allergies Allergy/AdvReac Type Severity Reaction Status Date / Time No Known Allergies Allergy Verified 10/09/19 10:14 Medications Home Medications Medication Instructions Recorded Confirmed Last Taken omega-3 fatty acids 1,000 mg 1,000 mg PO DAILY 11/12/18 10/09/19 Unknown capsule cholecalciferol (vitamin D3) 100 4,000 units PO DAILY 03/24/19 10/09/19 Unknown mcg (4,000 unit) capsule prenat.vits,giuliano,[id number] 1 tab PO DAILY 03/24/19 10/09/19 Unknown Probiotic 1 cap PO DAILY 09/22/19 10/09/19 Unknown ferrous sulfate [iron] 325 mg PO DAILY 09/22/19 10/09/19 Unknown Active Medications Generic Name Dose Route Start Last Admin Trade Name Freq PRN Reason Stop Dose Admin Citric Acid/Sodium Citrate 30 ml 10/13/19 06:00 10/13/19 10:11 Bicitra PO 10/13/19 11:00 30 ml PREOP QUEENIE Administration Cefazolin Sodium 2,000 mg in 15 mls @ 3.75 mls/min 10/13/19 06:00 10/13/19 10:16 Ancef 2000mg IV 10/14/19 05:59 3.75 mls/min PREOP QUEENIE Administration Protocol NPO Date Last Intake of Fluids: 10/12/19 Time Last Intake of Fluids: 23:00 Date Last Intake of Solids: 10/12/19 Time Last Intake of Solids: 23:00 Past Medical History Medical History GERD (gastroesophageal reflux disease) Hx of abnormal cervical Pap smear 2000, laser of cx Irregular heart beat [facility]OWS [facility] ([facility]) Jaw clicking Exercise / Class Metabolic Activity II 4-5 Yardwork/Stairs/Walk up hill Past Family History Family History Sister Asthma Prediabetes Grandfather Stroke Other Lung cancer Past Surgical History Surgical History H/O section X 1 H/O myringotomy History of anesthesia reaction NUMBNESS IN ARM WITH LAST (RT SHOULDER TO ELBOW) TINGLING SENSATION IN LEGS BILAT. History of esophagogastroduodenoscopy (EGD) History of tonsillectomy and adenoidectomy [place] teeth removed Past Anesthesia History No Hx of Anesthesia Complications and No Family Hx of Anesthesia Complications History of PONV No Hx of PONV Social History Smoking Status: Former smoker tobacco type: cigarettes Do You Dip or Chew Tobacco: No Smoking End Date: 2005 Hx Alcohol Use: No Hx Substance Use: No substance use type: does not use Review of Systems no chest pain or sob Physical Exam Vital Signs Last Vital Signs Temp 36.9 C 10/13/19 09:23 Pulse 75 10/13/19 10:14 Resp 20 10/13/19 09:23 BP 133/74 10/13/19 08:57 Pulse Ox 99 10/13/19 10:14 ENMT Mouth: no TMJ abnormality Thyromental Distance: > or= 3.5 Finger Breadths Mallampati Class: II Neck normal visual inspection Respiratory normal respiratory effort Auscultation: lungs clear to auscultation bilaterally Cardiovascular Rate/Rhythm: regular rate and regular rhythm Musculoskeletal Spine: normal cervical ROM Neurologic moves all extremities Psychiatric Orientation: alert and oriented x 3 Testing Laboratory Results 10/13/19 09:08
[2019-10-13] MEDS ORDERED: MoRPHine SULFATE PF 1 MG/ML 10 ML AMP/VIAL ONE (10:35)
[2019-10-13] MEDS ORDERED: fentaNYL citrate 100 MCG/2 ML VIAL ONE (10:36)
[2019-10-13] MEDS ORDERED: OXYTOCIN 10 UNITS/ML VIAL ONE (10:43)
--- NOTE | 2019-10-13 11:39 | Operative Report ---
PG Post Operative Report Pre & Post Diagnosis Operation Date: 10/13/19 10:40 Pre-Op Diagnosis: Repeat Caesarean Section Post-Op Diagnosis: Same; Delivery of a live male child at 1103 I identified the patient and participated in the time-out.: Yes Procedure Operation Date: 10/13/19 10:40 Actual Procedures p Section in LD - Michael Cho MD, FACOG Low segment transverse section Surgeon Michael Cho MD, FACOG Pelletizer Dr. Cardona Estimated Blood Loss 500 Findings Consistent with Post-Op Diagnosis Specimens Cord gases cord blood Description of Procedure Regional anesthetic was given by anesthesia patient had a Cabrera catheter inserted by nursing patient was prepped and draped in supine position with a leftward tilt preoperative antibiotics were given timeout performed Pickups with teeth were used to test the skin site and it was found adequate for incision scalpel used to make a Pfannenstiel incision cutting down through subcutaneous fat through the fascia fascia was then dissected laterally with the curved Platt's fascia was released superiorly and inferiorly from the rectus musc les with the curved Platt scissors, rectus muscle split peritoneal cavity entered in a superior location. Opening enlarged to allow exposure bladder retractor placed Metzenbaums used to dissect away the bladder flap low segment transverse incision made on the uterus with scalpel entry was done bluntly with the doughnut machine operator's finger hysterotomy incision extended with the doughnut machine operator's finger in the usual fashion baby was delivered then by flexion of the head and pressure from the criminal legal assistant on the abdomen mouth and then nares were suctioned baby was then delivered fully without difficulty without excessive force live vigorous cord clamped and cut cord gases obtained cord blood obtained placenta removed manually within ensured all placenta removed with a moist lap sponge uterus exteriorized IV Pitocin had been started by anesthesia and uterine tone improved. The uterus was closed in 2 layers first layer and 0 Monocryl running locked second layer 0 Monocryl nonlocked after generous irrigation and suction of the cul-de-sac and bladder flap regions hemostasis was excellent uterus was placed back in the peritoneal cavity and hemostasis was excellent rectus muscles were inspected and found to be dry fascia closed with 0 Vicryl subcutaneous fat closed with 3-0 Vicryl prior to this subcutaneous fat was irrigated skin closed with 4-0 subcuticular Monocryl incision Steri-Stripped urine was clear at the end of the procedure Note bilateral adnexa were were within normal limits uterine cavity was normal there was no thinness to the lower uterine segment and there was minimal scarring patient would be a candidate for another section at some point in the future I attest to the content of the Intraoperative Record and any orders documented therein. Any exceptions are noted below.
[2019-10-13 11:48] LABS: Base Excess Cord Venous Blood 0.4 mEq/L (-7.7-1.9); Cord Venous Blood HCO3 25 mmol/L (18.4-26.8); Cord Venous Blood PCO2 40 mmHg (30.4-57.2); Cord Venous Blood PO2 17 mmHg (14.1-43.3); Cord Venous Blood pH 7.41 (7.20-7.44)
[2019-10-13 11:55] LABS: O2 Saturation Cord Venous Bld < 60.0 % (<68)
[2019-10-13 11:56] LABS: Base Excess Cord Arterial Bld -0.6 mEq/L (-9-1.8); CO2 Cord Arterial Blood 51 mmHg (39.1-73.5); HCO3 Cord Arterial Blood 26 mmol/L (19.7-28.5); Oxygen Sat Cord Arterial Blood < 60.0 % (<60); PO2 Cord Arterial Blood 12 mmHg (4.1-31.7); pH Cord Arterial Blood 7.32 (7.1-7.38)
--- NOTE | 2019-10-13 12:14 | Anesthesiology Progress Note ---
Date of Service October 13, 2019 Anesthesia Post Procedure Vital Signs Vital Signs: Temp Pulse Resp BP Pulse Ox 10/13/19 12:12 66 122/66 98 10/13/19 12:07 64 97 10/13/19 12:02 57 L 122/56 L 99 10/13/19 11:57 58 L 99 10/13/19 11:52 59 L 118/56 L 98 10/13/19 11:47 65 99 10/13/19 11:42 63 112/52 L 99 10/13/19 10:14 75 99 10/13/19 09:23 36.9 C 20 10/13/19 08:57 71 133/74 Transfer of Care Handoff Completed per policy Notes Mental Status: alert / awake / arousable Patient Amnestic to Procedure: Yes Nausea / Vomiting: adequately controlled Pain: adequately controlled Airway Patency, RR, SpO2: stable & adequate BP & HR: stable & adequate Hydration State: stable & adequate Neuraxial Anesthesia: was administered and sensory block is resolving Anesthetic Complications: no major complications apparent and Pt Satisfied with anesthetic care
[2019-10-13] MEDS ORDERED: MAGNESIUM HYDROXIDE SUSP 30 ML UDC PO PRN (14:10)
[2019-10-13] MEDS ORDERED: SUPERCREAM 0.870% 15 GM JAR EXT PRN (14:10)
[2019-10-13] MEDS ORDERED: BENZOCAINE 20% AER SPR 82.5 GM CAN EXT PRN (14:10)
[2019-10-13] MEDS ORDERED: SENNA 8.6 MG TAB PO PRN (14:10)
[2019-10-13] MEDS ORDERED: DIPHTHERIA/TETANUS/PERTUSSIS 0.5 ML SYR/VIAL IM ONE (14:10)
[2019-10-13] MEDS ORDERED: HYDROCORTISONE ACETATE 25 MG SUPP PR PRN (14:10)
[2019-10-13] MEDS: OXYTOCIN 20 UNITS in LACTATED RINGER'S 1,000 ML IV SCH ×2 (15:31→22:53)
[2019-10-13] MEDS: SIMETHICONE 80 MG CHEW PO SCH ×2 (17:47→21:44)
[2019-10-13] MEDS: DOCUSATE SODIUM 100 MG CAP PO SCH (21:44)
[2019-10-14] MEDS: SIMETHICONE 80 MG CHEW PO SCH ×6 (02:34→20:48)
[2019-10-14] MEDS ORDERED: ONDANSETRON INJ 2 MG/ML 2 ML VIAL IV PRN (04:09)
[2019-10-14] MEDS ORDERED: MEPERIDINE HCL 50 MG/ML CARP IV PRN (04:09)
[2019-10-14] MEDS ORDERED: KETOROLAC 30 MG/ML VIAL IV PRN (04:09)
[2019-10-14] MEDS ORDERED: PROMETHAZINE HCL 25 MG in SODIUM CHLORIDE 0.9% 50 ML IV PRN (04:09)
[2019-10-14] MEDS ORDERED: DiphenhydrAMINE HCL 50 MG/ML VIAL IV PRN (04:09)
[2019-10-14] MEDS ORDERED: OXYCODONE/ACETAMINOPHEN 5mg/325mg TAB PO PRN (04:09)
[2019-10-14] MEDS: IBUPROFEN 600 MG TAB PO PRN ×4 (04:19→20:48)
--- NOTE | 2019-10-14 05:54 | Obstetrical Progress Note ---
Date of Service <Olvin Barraza MD - Last Filed: 10/14/19 05:59> October 14, 2019 Assessment & Plan <Olvin Barraza MD - Last Filed: 10/14/19 05:59> (1) : POD #1 Doing well, ambulating well, voiding well, tolerating oral intake. Continue routine care. After discharge will have follow-up in 6 weeks. Subjective <Olvin Barraza MD - Last Filed: 10/14/19 05:59> Cielo is a 39 y/o female ; POD #1 following delivery at 39 weeks (LMP 01/12/19); doing well this morning; 5/10 pain controlled with analgesics; voiding well; tolerating meals overnight and able to ambulate some Review of Systems Constitutional: denies fever, chills, sweat, headache Respiratory: denies shortness of breath, difficulty breathing Cardiac: denies chest pain, palpitations, chest pressure Breast: denies breast pain : denies dysuria <Cielo Armenta MD - Last Filed: 10/14/19 07:08> Constitutional WD/WN, vitals as above Eyes PERRL, conjunctivae normal, anicteric sclerae ENMT external ear and nose normal, oropharynx normal Neck trachea midline, no thyromegaly Respiratory normal respiratory effort and able to speak in complete sentences; no respiratory distress, no labored breathing and does not use accessory muscles Cardiovascular Rate/Rhythm: regular rate and regular rhythm Extremities: no calf tenderness and no pedal edema Chest (Breasts) Breast: normal inspection of breasts Gastrointestinal (Abdomen) Inspection/Auscultation: abdomen normal to inspection; abdomen not distended Dressing removed, c/d/i Musculoskeletal no cyanosis or clubbing, extremities motor strength 5/5 Skin no rashes, warm and dry Neurologic patellar DTR's 2+ bilat, sensation intact Psychiatric A+Ox3, euthymic affect Genitourinary Speculum/Bimanual Exam: uterus nontender OB Exam Abdomen: + fundal height (at umbilicus) Fundus: + firm Results & Data <Olvin Barraza MD - Last Filed: 10/14/19 05:59> Vital Signs (Past 12 Hours) Vital Signs Temp Pulse Resp BP Pulse Ox 10/14/19 04:45 36.8 C 74 16 125/80 98 10/14/19 03:00 16 99 10/14/19 02:00 16 98 10/14/19 01:22 16 97 10/14/19 00:04 16 99 10/13/19 23:24 16 98 10/13/19 22:30 37.0 C 62 16 114/75 100 10/13/19 21:00 16 99 10/13/19 20:14 16 97 10/13/19 19:20 36.7 C 83 16 127/76 98 10/13/19 18:30 16 99 <Cielo Armenta MD - Last Filed: 10/14/19 07:08> Co-Signing Physician Notes I have reviewed the resident's note and examined the patient myself, and agree with the note above.
[2019-10-14] MEDS ORDERED: CEFAZOLIN 2000MG 2,000 MG/15 ML SYR IV SCH (06:00)
[2019-10-14 06:06] LABS: Basophils # (auto) 0.04 K/uL (0-0.2); Basophils % (auto) 0.3 %; Eosinophils # (auto) 0.14 K/uL (0-0.5); Hematocrit (blood only) 36.2 % (37-47); Hemoglobin 12.5 g/dL (12.0-16.0); Immature Granulocytes # (auto) 0.07 K/uL (0.00-0.02); Immature Granulocytes % (auto) 0.5 %; Lymphocytes # (auto) 1.08 K/uL (1.2-3.4); Lymphocytes % (auto) 7.5 %; Mean Corpuscular Hemoglobin 30.6 pg (25-34); Mean Corpuscular Hgb Conc 34.5 g/dL (32-36); Mean Corpuscular Volume 88.5 fL (80-100); Mean Platelet Volume 11.1 fL (7.4-10.4); Monocytes # (auto) 0.86 K/uL (0.11-0.59); Neutrophils # (auto) 12.25 K/uL (1.4-6.5); Neutrophils % (auto) 84.7 %; Platelet Count 167 K/uL (130-400); RDW Coefficient of Variation 13.2 % (11.5-14.5); RDW Standard Deviation 42.9 fL (36.4-46.3); Red Blood Count 4.09 M/uL (4.2-5.4); White Blood Count 14.44 K/uL (4.8-10.8)
[2019-10-14] MEDS ORDERED: NON-FORMULARY MEDICATION (Prenat.Vits,Cal,Min-Iron-Folic 1 TAB) PO SCH (09:00)
[2019-10-14] MEDS: DOCUSATE SODIUM 100 MG CAP PO SCH ×2 (09:19→20:47)
[2019-10-14] MEDS: PRENATAL VITAMIN 1 TAB PO SCH (09:19)
[2019-10-14] MEDS: FERROUS SULFATE 325 MG TAB PO SCH (09:21)
[2019-10-14] MEDS: LACTOBACILLUS ACIDOPHILUS (FLORANEX) TAB PO SCH (09:22)
[2019-10-14] MEDS: OMEGA-3 (PURIFIED FISH OIL) 1 GM CAP PO SCH (09:22)
[2019-10-14] MEDS: CHOLECALCIFEROL 1,000 UNITS 25 MCG TAB PO SCH (09:23)
[2019-10-14] MEDS ORDERED: bisacodyL 5 MG TABEC PO SCH (20:00)
[2019-10-15] MEDS: IBUPROFEN 600 MG TAB PO PRN ×3 (03:36→13:06)
--- NOTE | 2019-10-15 06:36 | Obstetrical Progress Note ---
Date of Service <Olvin Barraza MD - Last Filed: 10/15/19 07:21> October 15, 2019 Assessment & Plan <Olvin Barraza MD - Last Filed: 10/15/19 07:21> (1) : POD #2 Doing well, ambulating well, voiding well, tolerating oral intake. Continue routine care. After discharge will have follow-up in 6 weeks. Subjective <Olvin Barraza MD - Last Filed: 10/15/19 07:21> Cielo is a 39 y/o female ; POD #2 following delivery at 39 weeks; doing well this morning; light abdominal cramping & 3/10pain well managed on analgesics; voiding well; tolerating meals overnight and able to ambulate some. The patient states she feels like she might want to go home today. Review of Systems Constitutional: denies fever, chills, sweat, headache Respiratory: denies shortness of breath, difficulty breathing Cardiac: denies chest pain, palpitations, chest pressure Breast: denies breast pain : denies dysuria Physical Exam <Olvin Barraza MD - Last Filed: 10/15/19 07:21> General: Alert, oriented. No acute distress. Cardiac: Regular rate and rhythm, no murmurs/rubs/gallops. Respiratory: Clear to auscultation bilaterally a/p, no wheezes/rales/rhonchi. No increased work of breathing. Symmetrical chest rise. No respiratory distress. Abdomen: Soft, nontender, nondistended. Bowel sounds present. Uterus: Uterine fundus firm, palpable 2cm below umbilicus. Surgical scar clean and healing well. Lower Extremities: No lower extremity edema or swelling. No deep calf pain. Jose Juan's negative bilaterally. Results & Data <Olvin Barraza MD - Last Filed: 10/15/19 07:21> Vital Signs (Past 12 Hours) Vital Signs Temp Pulse Resp BP BP Pulse Ox 10/15/19 03:40 37 C 90 16 116/68 98 10/14/19 23:20 36.6 C 96 H 16 121/68 98 10/14/19 21:09 36.4 C L 69 16 127/72 <Danilo J. Hovick Jr, MD, FACOG - Last Filed: 10/15/19 07:32> Co-Signing Physician Notes Resident Physician Supervision Note: I was present with Dr. Rodriguez during the history and exam. I discussed the case with the resident and agree with the findings and plan as documented in the note. Any exceptions or clarifications are listed here: Ambulating and tolerating po. Desires d/c, instructions and Rx sent, f/u in 6 weeks. Documented By: Danilo Bernard Jr, MD, FACOG
[2019-10-15 06:39] LABS: Hematocrit (blood only) 34.9 % (37-47)
[2019-10-15] MEDS: DOCUSATE SODIUM 100 MG CAP PO SCH (07:41)
[2019-10-15] MEDS: SIMETHICONE 80 MG CHEW PO SCH ×2 (07:41→13:06)
[2019-10-15] MEDS: PRENATAL VITAMIN 1 TAB PO SCH (07:41)
[2019-10-15] MEDS: FERROUS SULFATE 325 MG TAB PO SCH (08:09)
[2019-10-15] MEDS: CHOLECALCIFEROL 1,000 UNITS 25 MCG TAB PO SCH (08:10)
[2019-10-15] MEDS: LACTOBACILLUS ACIDOPHILUS (FLORANEX) TAB PO SCH (08:11)
[2019-10-15] MEDS: OMEGA-3 (PURIFIED FISH OIL) 1 GM CAP PO SCH (08:11)
[2019-10-15] MEDS ORDERED: bisacodyL 10 MG SUPP PR PRN (11:36)
--- NOTE | 2019-10-20 07:58 | Discharge Summary ---
Date of Service October 20, 2019 Admission HPI Per Admitting Provider Patient was admitted for a routine repeat section which was uncomplicated Admission Exam (Per Admitting) Constitutional WD/WN, vitals as above Respiratory normal respiratory effort, lungs clear to auscultation Cardiovascular RRR, no murmur, no edema Gastrointestinal (Abdomen) normal bowel sounds, soft, nontender, no hepatosplenomegaly Discharge Data Consultations 10/13/19 08:53 Consult Anesthesiology Stat Procedures Performed Operation Date: 10/13/19 10:40 Actual Procedures p Section in LD - Pat. Ba Cho MD, FACOG Hospital Course (1) Previous delivery affecting , antepartum: Postoperative from section patient meets discharge criteria as she is ambulating well tolerating an oral diet has minimal bleeding and no extremity pain. Discharge instructions were reviewed and prescriptions were sent to her pharmacy of choice patient advised to call with any concerns and follow-up in the office discussed Supervising Physician Co-Signing Physician Notes Resident Physician Supervision Note: I was present with Dr. Rodriguez during the history and exam. I discussed the case with the resident and agree with the findings and plan as documented in the note. Any exceptions or clarifications are listed here: Ambulating and tolerating po. Desires d/c, instructions and Rx sent, f/u in 6 weeks. Documented By: Danilo Bernard Jr, MD, FACOG Coding Level of Care Code None Diagnoses Previous delivery affecting , antepartum O34.219
== END 2019-10-15 15:45 | disposition home or self-care (01) | DRG 788 ==
LOC: EDSTATUS 07:30 → 4S1 08:42 → 4S2 15:34

== ENCOUNTER 2022-09-17 08:34 | Inpatient (IN) ==
--- NOTE | 2022-09-17 08:49 | History & Physical Report ---
Date of Service September 17, 2022 Assessment & Plan (1) Previous delivery affecting , antepartum: Plan: sched section for tomorrow, active labor 8cm, proceed to section. Repeat section. The patient was counseled to the nature of the procedure including alternatives such as labor. Risks were discussed including bleeding infection injury to bowel bladder ureter vessels and even baby. The risks of internal organ injury were discussed as bein g higher with prior sections. Deep Vein Thrombosis, pulmonary embolus and breakdown of the incision discussed. Deep vein thrombosis pulmonary embolus hernia and failure of the incision to he al were discussed Patient verbalized understanding of this and was given ample time to ask questions History of Present Illness Primary Care Provider: Wendy Marley DO LUPE Calculator Estimated Delivery Date Method Current WG Current Estimate 09/23/22 Manual 38w 6d LMP sure and 33d cycl e Other Estimates 09/18/22 LMP (Certain) 39w 4d LMP: 12/12/21 : 4 Full term: 2 Premature: 0 Total Number of Induced Abortions: 0 Total Number of Spontaneous Abortions: 1 Ectopics: 0 Multiple births: 0 Number of Living Children: 2 and Delivery Plans AMA>40@del *Anatomy Scan @ 20wks * Echo 36-42aev-MEL 05/30/22- Normal *Growth scan @32wks *Weekly NST's @36 wks *Twice weekly NST @38wks *Weekly SANDI's @38wks *Deliver by 40 wks Allergies Allergy/AdvReac Type Severity Reaction Status Date / Time No Known Allergies Allergy Verified 09/15/22 14:21 Home Medications Medication Instructions Recorded Confirmed Type prenat.vits,giuliano,vqm-jgfr-[id number] 1 tab PO DAILY 03/24/19 09/15/22 History Probiotic 1 tab PO QAM 09/08/22 09/15/22 History omega-3 fatty acids 1,000 mg PO DAILY 09/08/22 09/15/22 History Patient History Medical History (Updated 09/08/22 @ 15:52 by Bettye Prado) Arrhythmia Follows with [facility] [place] Holter monitor (07/25/22): Frequent PACs. Occasional multifocal PVCs were n oted GERD (gastroesophageal reflux disease) History of COVID-19 07/2020>resolved History of TMJ disorder resolved Hx of abnormal cervical Pap smear 2000, laser of cervix Hyperlipidemia ? 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 Postoperative hematoma Initial (2016), had post-op hematoma requiring wound vac Surgical History H/O section X 2 H/O myringotomy History of anesthesia reaction (2016) Right shoulder to elbow numbness (2019) BLLE tingling sensation (residual 6 months - 1 year), patient states that she not seek further evaluation of this, symptoms slowly resolved over time History of esophagogastroduodenoscopy (EGD) History of tonsillectomy and adenoidectomy [place] teeth removed Family History (Updated 09/08/22 @ 15:39 by Aarti Bravo RN) Sister Prediabetes Asthma Grandfather Stroke Other Lung cancer No family history of adverse response to anesthesia Social History (Updated 02/07/22 @ 17:27 by Randee Cuadra) Smoking Status: Former smoker Second Hand Exposure: Yes ( A CHILD); Do You Dip or Chew Tobacco: No; Hx Alcohol Use: No Hx Substance Use: No Preferred Language: Uzbek Pickling Solution Maker Required: No Beliefs That Will Affect Care: None marital status: marital status details: Rodolfo Kohli [phone] Current Living Situation: Family Current Living Situation Comment: lives with spouse and 2 children, no pets current occupational status: employed 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
[2022-09-17] MEDS ORDERED: ceFAZolin 2000MG 2,000 MG/15 ML SYR IV SCH (09:00)
[2022-09-17] MEDS ORDERED: LACTATED RINGER'S 1,000 ML IV SCH (09:00)
--- NOTE | 2022-09-17 09:02 | Anesthesiology Consultation ---
Date of Service September 17, 2022 Assessment & Plan Chart Review Chart Review: Acceptable Risk for Surgery and Patient NOT seen in Pre Admission Testing Consults Requested none ASA ASA2E Proposed Anesthesia Anesthesia Type: Spinal Risk / Benefits Reviewed With: PT / POA / Parent / Guardian, Accepts Plan and Informed Consent Obtained History Height/Weight Height: 5 ft 2 in Weight: 67.585 kg Allergies Allergy/AdvReac Type Severity Reaction Status Date / Time No Known Allergies Allergy Verified 09/15/22 14:21 Medications Home Medications Medication Instructions Recorded Confirmed Last Taken prenat.vits,giuliano,[id number] 1 tab PO DAILY 03/24/19 09/15/22 Unknown Probiotic 1 tab PO QAM 09/08/22 09/15/22 Unknown omega-3 fatty acids 1,000 mg PO DAILY 09/08/22 09/15/22 Unknown NPO Date Last Intake of Fluids: 09/17/22 Time Last Intake of Fluids: 05:00 Date Last Intake of Solids: 09/17/22 Time Last Intake of Solids: 05:00 Past Medical History Medical History Arrhythmia Follows with [facility] Holter monitor (07/25/22): Frequent PACs. Occasional multifocal PVCs were noted GERD (gastroesophageal reflux disease) History of COVID-19 07/2020>resolved History of TMJ disorder resolved Hx of abnormal cervical Pap smear 2000, laser of cervix Hyperlipidemia ? 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 Postoperative hematoma Initial (2016), had post-op hematoma requiring wound vac Exercise / Class Metabolic Activity II 4-5 Yardwork/Stairs/Walk up hill Past Family History Family History Sister Prediabetes Asthma Grandfather Stroke Other Lung cancer No family history of adverse response to anesthesia Past Surgical History Surgical History H/O section X 2 H/O myringotomy History of anesthesia reaction (2016) Right shoulder to elbow numbness (2019) BLLE tingling sensation (residual 6 months - 1 year), patient states that she not seek further evaluation of this, symptoms slowly resolved over time History of esophagogastroduodenoscopy (EGD) History of tonsillectomy and adenoidectomy [place] teeth removed Past Anesthesia History No Hx of Anesthesia Complications and No Family Hx of Anesthesia Complications History of PONV No Hx of PONV and No Hx of Motion Sickness Social History Smoking Status: Never smoker tobacco type: cigarettes Do You Dip or Chew Tobacco: No Hx Alcohol Use: No Hx Substance Use: No substance use type: does not use Physical Exam Vital Signs Last Vital Signs Temp 36.4 C L 09/17/22 08:40 Pulse 75 09/17/22 08:40 Resp 16 09/17/22 08:40 BP 140/75 09/17/22 08:40 Constitutional + obese; no acute distress ENMT Mouth: + TMJ abnormality Thyromental Distance: < 3.5 Finger Breadths Mallampati Class: II Neck normal visual inspection and trachea midline; neck extension not limited Respiratory normal respiratory effort Auscultation: lungs clear to auscultation bilaterally Cardiovascular Rate/Rhythm: regular rate and regular rhythm Heart Sounds: no murmur Musculoskeletal Spine: lumbar spine normal to inspection; normal cervical ROM and no pain with cervical ROM Extremities: full ROM of extremities Neurologic moves all extremities Motor/Sensory: no sensory deficit Psychiatric Orientation: alert and oriented x 3
[2022-09-17] MEDS ORDERED: fentaNYL citrate PF 100 MCG/2 ML VIAL ONE (09:06)
[2022-09-17] MEDS ORDERED: MoRPHine SULFATE PF 1 MG/ML 10 ML AMP/VIAL ONE (09:07)
[2022-09-17] MEDS ORDERED: CITRIC ACID/SODIUM CITRATE 15 ML UDC ONE (09:08)
[2022-09-17] MEDS ORDERED: CITRIC ACID/SODIUM CITRATE 15 ML UDC PO ONE (09:11)
[2022-09-17 09:22] LABS: Basophils # (auto) 0.07 K/uL (0-0.2); Basophils % (auto) 0.5 %; Eosinophils # (auto) 0.09 K/uL (0-0.50); Eosinophils % (auto) 0.6 %; Hematocrit (blood only) 38.2 % (37.0-47.0); Hemoglobin 13.2 g/dl (12.0-16.0); Immature Granulocytes # (auto) 0.08 K/uL (0.01-0.20); Immature Granulocytes % (auto) 0.5 %; Lymphocytes # (auto) 1.38 K/uL (1.2-3.4); Lymphocytes % (auto) 9.2 %; Mean Corpuscular Hgb Conc 34.6 g/dL (32.0-36.0); Mean Corpuscular Volume 86.8 fL (80.0-100.0); Mean Platelet Volume 11.9 fL (9.4-12.4); Monocytes # (auto) 1.06 K/uL (0.11-0.59); Monocytes % (auto) 7.1 %; Neutrophils # (auto) 12.25 K/uL (1.40-6.50); Neutrophils % (auto) 82.1 %; Platelet Count 185 K/uL (130-400); RDW Coefficient of Variation 13.6 % (11.5-14.5); RDW Standard Deviation 42.6 fL (36.4-46.3); White Blood Count 14.93 K/ul (4.8-10.8)
[2022-09-17] MEDS ORDERED: OXYTOCIN 10 UNITS/ML VIAL ONE (09:47)
[2022-09-17] MEDS ORDERED: ONDANSETRON INJ 2 MG/ML 2 ML VIAL IV PRN ×2 (10:20→10:25)
[2022-09-17] MEDS ORDERED: ePHEDrine sulfate 50 MG/ML AMP IV PRN (10:20)
[2022-09-17] MEDS ORDERED: NALOXONE HCL 0.08 MG in SYRINGE 1.8 ML IV PRN (10:20)
[2022-09-17] MEDS ORDERED: PROMETHAZINE HCL 25 MG in SODIUM CHLORIDE 0.9% 50 ML IV PRN ×2 (10:20→10:25)
[2022-09-17] MEDS ORDERED: diphenhydrAMINE 50 MG/ML VIAL IV PRN (10:20)
[2022-09-17] MEDS ORDERED: NALOXONE HCL 0.4 MG/1 ML VIAL/CARP IV PRN (10:20)
[2022-09-17] MEDS ORDERED: MoRPHine SULFATE PF 1 MG/ML 10 ML AMP/VIAL INT SPINAL ONE (10:20)
[2022-09-17] MEDS ORDERED: NALOXONE HCL 1 MG in SODIUM CHLORIDE 0.9% 1000ML 1,000 ML IV PRN (10:20)
[2022-09-17] MEDS ORDERED: LACTATED RINGER'S 500 ML IV PRN (10:20)
[2022-09-17] MEDS ORDERED: NALBUPHINE HCL INJ 10 MG/ML AMP IV PRN (10:20)
[2022-09-17] MEDS ORDERED: HYDROCORTISONE ACETATE 25 MG SUPP PR PRN (10:25)
[2022-09-17] MEDS ORDERED: SENNA 8.6 MG TAB PO PRN (10:25)
[2022-09-17] MEDS ORDERED: DIPHTHERIA/TETANUS/PERTUSSIS Vaccine (Tdap, Age 7+yrs) 0.5mL SYR/VL IM ONE (10:25)
[2022-09-17] MEDS ORDERED: BENZOCAINE 20% AER SPR 82.5 GM CAN EXT PRN (10:25)
[2022-09-17] MEDS ORDERED: MAGNESIUM HYDROXIDE SUSP 30 ML UDC PO PRN (10:25)
--- NOTE | 2022-09-17 10:26 | Operative Report ---
PG Post Operative Report Pre & Post Diagnosis Operation Date: 09/17/22 09:00 Pre-Op Diagnosis: Labor. Prior section x2. Post-Op Diagnosis: Labor. Prior section x2. Delivery of live male child at 0954. I identified the patient and participated in the time-out.: Yes Procedure Operation Date: 09/17/22 09:00 Actual Procedures p Section in LD, delivery of live male child at 0954 - Michael Cho MD, FACOG Surgeon Michael Cho MD, FACOG Optometrist President/Practice Owner . Estimated Blood Loss 600 Findings Consistent with Post-Op Diagnosis Specimens cord blood Description of Procedure Regional anesthetic had been given by anesthesia patient was prepped and draped with a leftward tilt preoperative antibiotics had been given in appropriate timing by anesthesiology. Once the prep was allowed to fully dry timeout was performed. Pickups with teeth were used to test the incision area was found to be adequate for incision as the patient did not feel sharp pain. Scalpel was used to make a Pfannenstiel incision on the lower abdomen. We then cut through the subcutaneous fat down to the level of the anterior rectus sheath fascia this was cut in the midline and then extended laterally with the curved Platt scissors. At this stage we then placed 2 Meche clamps on the anterior aspect of the fascia. Using the curved Platt's we are able to dissect the fascia superiorly away from the rectus muscles. Care was taken to maintain hemostasis. Meche clamps were then placed to the inferior aspect of the anterior sheath of the fascia. Fascia was then dissected away from the rectus muscles inferiorly towards the pubic bone. A Meche was then placed in the midline both inferiorly and superiorly. This was to allow exposure by retraction rectus muscles were in the midline with were then able to cut through the peritoneum and then enter the peritoneal cavity. Opening was enlarged to allow exposure of the peritoneal cavity both superiorly and inferiorly. Once adequate space was obtained a bladder retractor was placed to expose the lower segment Metzenbaums were used to dissect the bladder flap inferiorly away from the uterus. This was done sharply bladder retractor was then repositioned to expose the lower segment of the uterus Note there were dense bladder flap adhesions I was able to dissect these away and push the bladder down there was some significant dissection with this and near the end of the case there was some blood-tinged urine I found no evidence of any bladder injury at any point and this was examined thoroughly Fresh scalpel was used to make a low transverse incision on the uterus. Uterus was then entered bluntly with the operators finger, membranes ruptured and the opening was enlarged using the operators fingers bluntly pulling superiorly and inferiorly to allow exposure. Baby was delivered by first flexion of the head elevation of the head out of the pelvis and then pressure by the general surgery physician assistant on the maternal abdomen. Baby's head was then delivered mouth and then nares were suctioned and then using gentle traction the baby was fully delivered. Live vigorous . Fluid was clear cord clamped and cut cord gases obtained cord blood obtained baby handed to pediatrics. Placenta removed was removed with traction we ensure the entire placenta was removed with a moist lap sponge into the uterus Uterus was then exteriorized. IV Pitocin had been started by anesthesia tone improved there were no extensions the uterus was then closed using 0 Monocryl in a 2 layer closure the first layer closed in a running locked fashion from left to right and then a second closure from left to right in a running nonlocked fashion. At this stage hemostasis was excellent. Uterus was placed back in the peritoneal cavity with suction irrigation out and inspection of the uterus at this stage revealed excellent hemostasis Retractors were removed urine color was slightly blood tinged at this stage of the case we inspected the rectus muscles they were hemostatic fascia was closed with 0 Vicryl subcutaneous fat was irrigated and closed with 3-0 Vicryl skin closed with 4-0 subcuticular Monocryl I attest to the content of the Intraoperative Record and any orders documented therein. Any exceptions are noted below. OB Procedure Charges [id number]
[2022-09-17] MEDS ORDERED: NO NARCOTICS OR SEDATIVES SCH (10:30)
[2022-09-17] MEDS ORDERED: SODIUM CHLORIDE 0.9% 1000ML 1,000 ML IV SCH (10:30)
[2022-09-17] MEDS ORDERED: DC INTRASPINAL MORPHINE SCH (10:30)
--- NOTE | 2022-09-17 11:46 | Anesthesiology Progress Note ---
Date of Service September 17, 2022 Anesthesia Post Procedure Vital Signs Vital Signs: Temp Pulse Resp BP Pulse Ox 09/17/22 11:20 36.4 C L 16 09/17/22 08:40 36.4 C L 75 16 140/75 09/17/22 11:40 100 09/17/22 11:40 62 09/17/22 11:39 68 09/17/22 11:39 137/66 09/17/22 11:35 100 09/17/22 11:35 67 09/17/22 11:30 100 09/17/22 11:30 68 09/17/22 11:29 57 L 09/17/22 11:29 145/77 H 09/17/22 11:25 100 09/17/22 11:25 59 L 09/17/22 11:20 100 09/17/22 11:20 64 09/17/22 11:18 55 L 09/17/22 11:18 124/75 09/17/22 11:15 100 09/17/22 11:15 59 L 09/17/22 11:10 98 09/17/22 11:10 64 09/17/22 11:09 65 09/17/22 11:09 132/74 09/17/22 11:05 98 09/17/22 11:05 64 09/17/22 11:00 98 09/17/22 11:00 68 09/17/22 11:00 111/66 09/17/22 10:55 99 09/17/22 10:55 67 09/17/22 10:50 99 09/17/22 10:50 62 09/17/22 10:49 65 09/17/22 10:49 117/73 09/17/22 10:45 99 09/17/22 10:45 72 09/17/22 10:40 98 09/17/22 10:40 68 09/17/22 10:38 67 09/17/22 10:38 112/63 09/17/22 10:34 99 09/17/22 10:34 71 09/17/22 10:29 100 09/17/22 10:29 71 09/17/22 10:29 73 09/17/22 10:29 107/64 09/17/22 08:38 75 140/75 Pain Intensity Abdomen: Pain Intensity: 4 Transfer of Care Handoff Completed per policy Notes Mental Status: alert / awake / arousable Patient Amnestic to Procedure: Yes Nausea / Vomiting: adequately controlled Pain: adequately controlled Airway Patency, RR, SpO2: stable & adequate BP & HR: stable & adequate Hydration State: stable & adequate Neuraxial Anesthesia: was administered and sensory block is resolving Anesthetic Complications: no major complications apparent
[2022-09-17] MEDS: KETOROLAC 30 MG/ML VIAL IV PRN ×2 (11:47→21:33)
[2022-09-17] MEDS: OXYTOCIN 20 UNITS in LACTATED RINGER'S 1,000 ML IV SCH ×2 (12:46→20:41)
[2022-09-17] MEDS: SIMETHICONE 80 MG CHEW PO SCH ×3 (14:08→20:40)
[2022-09-17] MEDS: LACTATED RINGER'S 1,000 ML IV SCH (19:49)
[2022-09-17] MEDS: DOCUSATE SODIUM 100 MG CAP PO SCH (20:40)
[2022-09-18] MEDS ORDERED: KETOROLAC 30 MG/ML VIAL IV PRN (04:21)
[2022-09-18] MEDS ORDERED: oxyCODONE/ACETAMINOPHEN 5mg/325mg TAB PO PRN (04:21)
[2022-09-18] MEDS ORDERED: diphenhydrAMINE 50 MG/ML VIAL IV PRN (04:21)
[2022-09-18] MEDS ORDERED: diphenhydrAMINE Capsule 25 MG CAP PO PRN (04:21)
[2022-09-18] MEDS: LACTATED RINGER'S 1,000 ML IV SCH (04:41)
[2022-09-18 06:33] LABS: Basophils # (auto) 0.06 K/uL (0-0.2); Basophils % (auto) 0.5 %; Eosinophils % (auto) 0.9 %; Hematocrit (blood only) 31.2 % (37.0-47.0); Hemoglobin 10.8 g/dl (12.0-16.0); Immature Granulocytes # (auto) 0.06 K/uL (0.01-0.20); Immature Granulocytes % (auto) 0.5 %; Lymphocytes # (auto) 1.03 K/uL (1.2-3.4); Lymphocytes % (auto) 8.9 %; Mean Corpuscular Hemoglobin 29.7 pg (25.0-34.0); Mean Corpuscular Hgb Conc 34.6 g/dL (32.0-36.0); Mean Corpuscular Volume 85.7 fL (80.0-100.0); Mean Platelet Volume 11.6 fL (9.4-12.4); Monocytes # (auto) 0.72 K/uL (0.11-0.59); Monocytes % (auto) 6.3 %; Neutrophils # (auto) 9.55 K/uL (1.40-6.50); Neutrophils % (auto) 82.9 %; Platelet Count 143 K/uL (130-400); RDW Coefficient of Variation 13.3 % (11.5-14.5); RDW Standard Deviation 41.5 fL (36.4-46.3); Red Blood Count 3.64 M/uL (4.20-5.40); White Blood Count 11.52 K/ul (4.8-10.8)
[2022-09-18] MEDS: IBUPROFEN 600 MG TAB PO PRN ×3 (07:33→18:03)
--- NOTE | 2022-09-18 07:40 | Obstetrical Progress Note ---
Date of Service September 18, 2022 Assessment & Plan (1) care following delivery: (2) Supervision of elderly multigravida: Plan - Overall, feeling well and eating well today - feeding going well without concern - Passing gas appropriately, remove Cabrera this AM (urine yellow-clear) - Continue to advance ambulation - Incision clean/dry under bandage, no erythema or purulence, ok to remove bandage - Pain controlled w/ Ibuprofen - Hgb 10.8 09/18 - Vitals stable and wnl - Routine PP care progressing well - Anticipate discharge @ 48-72 hours PP - Recommending f/u outpatient in 6 weeks Admission and Anticipated Discharge Date Admission Date: September 17, 2022 Supervising Physician Co-Signing Physician Notes Resident Physician Supervision Note: I was present with Dr. Mayers during the history and exam. I discussed the case with the resident and agree with the findings and plan as documented in the note. Any exceptions or clarifications are listed here: [None] Documented By: Michael Cho MD, FACOG Subjective Patient is a 42 F who is POD #1 following delivery at 39 1/7. She reports feeling well overall this morning. - Ambulation - sitting at edge of bed, anticipating continue progress today - Voiding/Cabrera - Cabrera intact, no dysuria or pressure, clear yellow urine - Gas/Stool - passing gas, no bowel movement - Diet - light (crackers), no nausea or emesis - Lochia - diminishing, light amount - Feeding Type - breast feeding w/o concern - Pain Level - 2/10, controlled with Ibuprofen Review of Systems - Denies fever, chills, sweats - Denies shortness of breath, difficulty breathing, chest pain, palpitations, chest pressure. - Denies breast pain. - Denies dysuria. - Denies headache or changes in vision. Physical Exam Physical Exam: General: Alert, oriented. No acute distress. Cardiac: RRR, normal S1/S2, no murmurs/rubs/gallops. Respiratory: Non-labored, CTAB, no wheezes/rales/rhonchi. Symmetric chest rise. Abdomen: Soft, nontender, nondistended. Bowel sounds present. Uterus: Uterine fundus firm, palpable 1 cm below umbilicus. Incision clean/dry w/o erythema or purulence. Lower Extremities: No lower extremity edema or swelling. No deep calf pain. Jose Juan's negative bilaterally. Results & Data Vital Signs (Past 12 Hours) Vital Signs Temp Pulse Resp BP BP Pulse Ox O2 Del Method 09/18/22 03:50 37.1 C 81 133/80 98 Room Air 09/18/22 02:00 16 98 09/18/22 01:00 16 98 09/17/22 23:33 37 C 81 18 128/87 96 Room Air 09/17/22 23:00 18 96 09/17/22 22:00 18 98 09/17/22 20:45 36.9 C 76 18 127/78 97 Room Air 09/17/22 20:00 18 97 Resident Activity Tracking Resident Involvement: Resident Care Provided Care Provided: OB Delivery
[2022-09-18] MEDS: SIMETHICONE 80 MG CHEW PO SCH ×4 (08:19→20:56)
[2022-09-18] MEDS: DOCUSATE SODIUM 100 MG CAP PO SCH ×2 (08:19→20:56)
[2022-09-18] MEDS: PRENATAL VITAMIN 1 TAB PO SCH (08:19)
[2022-09-18] MEDS: FERROUS SULFATE 325 MG TAB PO SCH (08:19)
[2022-09-18] MEDS ORDERED: bisacodyL 5 MG TABEC PO SCH (20:00)
--- NOTE | 2022-09-19 05:58 | Obstetrical Progress Note ---
Date of Service September 19, 2022 Assessment & Plan (1) care following delivery: (2) Supervision of elderly multigravida: Plan - Overall, feeling well and eating well today - feeding going well without concern - Passing gas appropriately, voiding independently - Ambulating well within room - Incision clean/dry, no erythema or purulence - Pain controlled w/ Ibuprofen - Hgb 10.8 09/18 - BP elevation (w/ ambulation) pending AM check, no active medical mgmt at this time, vitals otherwise wnl - Routine PP care progressing well - Anticipate discharge @ 48-72 hours PP - Recommending f/u outpatient in 6 weeks Admission and Anticipated Discharge Date Admission Date: September 17, 2022 Supervising Physician Co-Signing Physician Notes Resident Physician Supervision Note: I interviewed and examined the patient. Discussed with Dr. Mayers and agree with findings and plan as documented in the note. Any exceptions or clarifications are listed here: [ ] Documented By: Cielo Armenta MD, FACOG Subjective Patient is a 42 F who is POD #2 following delivery at 39 1/7. She reports feeling well overall this morning. - Ambulation - well within room - Voiding/Cabrera - independent voids, no dysuria or pressure - Gas/Stool - passing gas appropriately, no bowel movement - Diet - regular, no nausea or emesis - Lochia - diminishing, light amount - Infant Feeding Type - breast feeding w/o concern - Pain Level - 5/10, controlled with Ibuprofen (content with pain control at this time) Review of Systems - Denies fever, chills, sweats - Denies shortness of breath, difficulty breathing, chest pain, palpitations, chest pressure. - Denies breast pain. - Denies dysuria. - Endorses headache (a/w fatigue), denies changes in vision or lightheadedness. Physical Exam Physical Exam: General: Alert, oriented. No acute distress. Cardiac: RRR, normal S1/S2, no murmurs/rubs/gallops. Respiratory: Non-labored, CTAB, no wheezes/rales/rhonchi. Symmetric chest rise. Abdomen: Soft, nontender, nondistended. Bowel sounds present. Uterus: Uterine fundus firm, palpable 2 cm below umbilicus. Incision clean/dry w/o erythema or purulence. Lower Extremities: No lower extremity edema or swelling. No deep calf pain. Jose Juan's negative bilaterally. Results & Data Vital Signs (Past 12 Hours) Vital Signs Temp Pulse Resp BP Pulse Ox O2 Del Method 09/18/22 23:30 36.7 C 63 18 159/89 H 09/18/22 20:18 36.7 C 76 18 141/82 H 98 Room Air 09/18/22 18:00 152/88 H Resident Activity Tracking Resident Involvement: Resident Care Provided Care Provided: OB Delivery
[2022-09-19 06:22] LABS: Hematocrit (blood only) 32.8 % (37.0-47.0); Hemoglobin 11.2 g/dl (12.0-16.0)
[2022-09-19] MEDS: IBUPROFEN 600 MG TAB PO PRN ×4 (07:19→20:58)
[2022-09-19] MEDS: SIMETHICONE 80 MG CHEW PO SCH ×4 (07:19→20:58)
[2022-09-19] MEDS: PRENATAL VITAMIN 1 TAB PO SCH (07:19)
[2022-09-19] MEDS: DOCUSATE SODIUM 100 MG CAP PO SCH ×2 (07:20→20:58)
[2022-09-19] MEDS: FERROUS SULFATE 325 MG TAB PO SCH (07:20)
[2022-09-19] MEDS: NIFEdipine EXTENDED REL 30 MG TABCR PO SCH (08:54)
[2022-09-19] MEDS ORDERED: bisacodyL 10 MG SUPP PR PRN (10:22)
[2022-09-19 14:39] LABS: Hematocrit (blood only) 33.7 % (37.0-47.0); Hemoglobin 11.5 g/dl (12.0-16.0); Mean Corpuscular Hemoglobin 30.1 pg (25.0-34.0); Mean Corpuscular Hgb Conc 34.1 g/dL (32.0-36.0); Mean Corpuscular Volume 88.2 fL (80.0-100.0); Mean Platelet Volume 10.9 fL (9.4-12.4); Platelet Count 184 K/uL (130-400); RDW Coefficient of Variation 13.6 % (11.5-14.5); RDW Standard Deviation 43.8 fL (36.4-46.3); Red Blood Count 3.82 M/uL (4.20-5.40)
[2022-09-19 14:58] LABS: Albumin Level 3.3 gm/dl (3.4-5.0); BUN Creatinine Ratio 19.2 (10-20); Bilirubin,Total 0.3 mg/dl (0.2-1.0); Calcium 9.1 mg/dl (8.6-10.3); Creatinine Clr Calc Pharmacy 128.3 ml/min; Est GFR (African American) 137.5 ml/min; Est GFR (Non-African American) 118.7 ml/min; Globulin 3.3 gm/dl (2.5-4.0); Potassium 3.6 mmol/L (3.5-5.1); Total Protein 6.6 gm/dl (6.0-8.3)
[2022-09-20] MEDS: IBUPROFEN 600 MG TAB PO PRN ×2 (04:34→08:55)
--- NOTE | 2022-09-20 06:18 | Obstetrical Progress Note ---
Date of Service September 20, 2022 Assessment & Plan (1) care following delivery: (2) Supervision of elderly multigravida: Plan - Overall, feeling well and eating well today - feeding going well without concern - Passing gas appropriately, voiding independently - Ambulating well within room - Incision clean/dry, no erythema or purulence - Pain controlled w/ Ibuprofen - Hgb 11.5 09/19 - BP controlled since 2300 on Nifedipine XL 30 qAM, CBC/CMP unremarkable - Routine PP care progressing well - Anticipate discharge @ 48-72 hours PP - Recommending f/u outpatient in 1 week for BP check and 6 weeks for regular PP visit Admission and Anticipated Discharge Date Admission Date: September 17, 2022 Supervising Physician Co-Signing Physician Notes Resident Physician Supervision Note: I interviewed and examined the patient. Discussed with Dr. Mayers and agree with findings and plan as documented in the note. Any exceptions or clarifications are listed here: POD3 s/p rLTCS, doing well. Started on nifedipine 30xl yesterday after elevated bps, normal cbc/cmp. BPs improved. Exam benign and wnl. Stable for d/c home today on procardia, plan 1wk bp check Documented By: Cailin La MD Subjective Patient is a 42 F who is POD #3 following delivery at 39 1/7. She reports feeling well overall this morning. - Ambulation - well within room - Voiding/Cabrera - independent voids, no dysuria or pressure - Gas/Stool - passing gas appropriately, no bowel movement - Diet - regular, no nausea or emesis - Lochia - diminishing, light amount - Infant Feeding Type - breast feeding w/o concern - Pain Level - 1/10, controlled with Ibuprofen Review of Systems - Denies fever, chills, sweats - Denies shortness of breath, difficulty breathing, chest pain, palpitations, chest pressure. - Denies breast pain. - Denies dysuria. - Endorses fatigue, denies headaches, denies changes in vision or lightheadedness. Physical Exam Physical Exam: General: Alert, oriented. No acute distress. Cardiac: RRR, normal S1/S2, no murmurs/rubs/gallops. Respiratory: Non-labored, CTAB, no wheezes/rales/rhonchi. Symmetric chest rise. Abdomen: Soft, nontender, nondistended. Bowel sounds present. Uterus: Uterine fundus firm, palpable 2 cm below umbilicus. Incision clean/dry w/o erythema or purulence. Lower Extremities: No lower extremity edema or swelling. No deep calf pain. Jose Juan's negative bilaterally. Results & Data Vital Signs (Past 12 Hours) Vital Signs Temp Pulse Resp BP BP Pulse Ox O2 Del Method 09/20/22 03:49 79 128/82 09/20/22 00:07 36.6 C 79 16 129/84 97 Room Air 09/19/22 20:00 Room Air 09/19/22 20:00 36.6 C 74 18 127/84 97 Room Air Resident Activity Tracking Resident Involvement: Resident Care Provided Care Provided: OB Delivery
[2022-09-20] MEDS: SIMETHICONE 80 MG CHEW PO SCH (08:55)
[2022-09-20] MEDS: FERROUS SULFATE 325 MG TAB PO SCH (08:55)
[2022-09-20] MEDS: DOCUSATE SODIUM 100 MG CAP PO SCH (08:55)
[2022-09-20] MEDS: NIFEdipine EXTENDED REL 30 MG TABCR PO SCH (08:55)
[2022-09-20] MEDS: PRENATAL VITAMIN 1 TAB PO SCH (08:55)
--- NOTE | 2022-09-21 21:50 | Discharge Summary ---
Date of Service September 21, 2022 Admission HPI Per Admitting Provider LUPE Calculator Estimated Delivery Date Method Current WG Current Estimate 09/23/22 Manual 38w 6d LMP sure and 33d cycl e Other Estimates 09/18/22 LMP (Certain) 39w 4d LMP: 12/12/21 : 4 Full term: 2 Premature: 0 Total Number of Induced Abortions: 0 Total Number of Spontaneous Abortions: 1 Ectopics: 0 Multiple births: 0 Number of Living Children: 2 and Delivery Plans AMA>40@del *Anatomy Scan @ 20wks * Echo [id number] 05/30/22- Normal *Growth scan @32wks *Weekly NST's @36 wks *Twice weekly NST @38wks *Weekly SANDI's @38wks *Deliver by 40 wks Admission Exam (Per Admitting) Constitutional WD/WN, vitals as above well developed and well nourished Respiratory normal respiratory effort, lungs clear to auscultation normal respiratory effort Cardiovascular RRR, no murmur, no edema Gastrointestinal (Abdomen) normal bowel sounds, soft, nontender, no hepatosplenomegaly Discharge Data Consultations 09/17/22 08:46 Consult Anesthesiology Stat Procedures Performed Operation Date: 09/17/22 09:00 Actual Procedures p Section in LD, delivery of live male child at 0954 - Michael Cho MD, [facility] Course (1) care following delivery: (2) Supervision of elderly multigravida: Plan - Overall, feeling well and eating well today - feeding going well without concern - Passing gas appropriately, voiding independently - Ambulating well within room - Incision clean/dry, no erythema or purulence - Pain controlled w/ Ibuprofen - Hgb 11.5 09/19 - BP controlled since 2299 on Nifedipine XL 30 qAM, CBC/CMP unremarkable - Routine PP care progressing well - Anticipate discharge @ 48-72 hours PP - Recommending f/u outpatient in 1 week for BP check and 6 weeks for regular PP visit Supervising Physician Co-Signing Physician Notes Resident Physician Supervision Note: I interviewed and examined the patient. Discussed with Dr. Mayers and agree with findings and plan as documented in the note. Any exceptions or clarifications are listed here: POD3 s/p rLTCS, doing well. Started on nifedipine 30xl yesterday after elevated bps, normal cbc/cmp. BPs improved. Exam benign and wnl. Stable for d/c home today on procardia, plan 1wk bp check Documented By: Cailin La MD Coding Level of Care Code None Diagnoses care following delivery Z39.2 Supervision of elderly multigravida O09.529
== END 2022-09-20 11:10 | disposition home or self-care (01) | DRG 788 ==
LOC: OPB 08:34 → 4S1 08:36 → 4E2 17:19
DX: Z37.0 Single live birth; O34.211 Maternal care for low transverse scar from previous cesarean delivery; Z3A.41 41 weeks gestation of pregnancy